=== PATIENT | female | born 1955 | race Caucasian/White ===

== ENCOUNTER 2016-09-04 12:49 | Emergency (ER) | payer BC ==
[2016-09-04 12:59] VITALS: TEMP 98.1; BMI 37.4
[2016-09-04] MEDS ORDERED: ASPIRIN 81 MG CHEWABLE TABLETS PO ONE (13:12)
[2016-09-04] MEDS ORDERED: ASPIRIN 81 MG CHEWABLE TABLETS ONE (13:22)
[2016-09-04 13:28] LABS: BASOPHIL 0.4 % (0-2.0); EOSINOPHIL 3.5 % (0-4.5); MCH 26.4 pg (25.7-33.7); MCHC 31.8 g/dl (32.0-36.0); MEAN CELL VOLUME 82.9 fl (80-96); MEAN PLT VOLUME 7.3 fl (7.5-11.1); NEUTROPHILS 69.8 % (42.8-82.8); PLATELET COUNT 314 K/MM3 (134-434); RDW 16.6 % (11.6-15.6); WHITE BLOOD COUNT 10.1 K/mm3 (4.0-10.0)
--- NOTE | 2016-09-04 13:29 | PDOC ---
History of Present Illness - General Chief Complaint: Pain Stated Complaint: NECK, SHOULDER, CHEST, BACK PAIN Time Seen by Provider: 09/04/16 12:54 History Source: Patient, Spouse Exam Limitations: No Limitations - History of Present Illness Initial Comments: 09/04/16 13:25 CHIEF COMPLAINT: "I have chest pain." HISTORY OF PRESENT ILLNESS: 60-year-old female with a history of carotid artery disease, hypertension, diabetes, hyperlipidemia, presents complaining of onset yesterday of discomfort across the entire anterior chest. The patient has a history of GERD and thought it might be GI so she stated home and rested. The symptoms persist today so she came to the emergency department. She denies shortness of breath, diaphoresis, vomiting, or radiation to the neck or shoulders. She does have chronic neck pain and back pain with a history of prior cervical surgery, but that is unchanged from baseline. The pain is continuously present, and is present at the current time. REVIEW OF SYSTEMS: GENERAL/CONSTITUTIONAL: No fever or chills. No weakness. No weight change. HEAD, EYES, EARS, NOSE AND THROAT: No change in vision. No ear pain or discharge. No sore throat. CARDIOVASCULAR: Positive chest pain. No shortness of breath. RESPIRATORY: No cough, wheezing, or hemoptysis. GASTROINTESTINAL: No nausea, vomiting, diarrhea or constipation. No rectal bleeding. GENITOURINARY: No dysuria, frequency, or change in urination. MUSCULOSKELETAL: No joint or muscle swelling or pain. Positive chronic neck pain and upper back pain, unchanged. History of cervical surgery. SKIN AND BREASTS: No rash or easy bruising. NEUROLOGIC: No headache, vertigo, loss of consciousness, or loss of sensation. PSYCHIATRIC: No depression or anxiety. ENDOCRINE: No increased thirst. No abnormal weight change. HEMATOLOGIC/LYMPHATIC: No anemia, easy bleeding, or history of blood clots. ALLERGIC/IMMUNOLOGIC: No hives or skin allergy. No latex allergy. Past History - Past Medical History Allergies/Adverse Reactions: Allergies Allergy/AdvReac Type Severity Reaction Status Date / Time No Known Drug Allergies Allergy Verified 09/04/16 12:51 Home Medications: Ambulatory Orders Aspirin Coated [Ecotrin -] 81 mg PO DAILY 07/22/12 Nadolol 40 mg PO HS 07/22/12 Olmesartan Medoxomil [Benicar -] 40 mg PO DAILY 07/22/12 Pravastatin Sodium [Pravachol -] 40 mg PO HS 07/22/12 Folic Acid/Multivit-Min/Lutein [Centrum Silver Chewable Tablet] 1 each PO DAILY 09/16/14 Glimepiride 1 mg PO BID 09/16/14 Ubidecarenone [Coq-10] 200 mg PO HS 09/16/14 Sitagliptin Phos/Metformin HCl [Janumet 50-1,000 mg Tablet] 1 tab PO BID Pantoprazole Sodium 40 mg PO DAILY 06/10/16 Cholecalciferol (Vitamin D3) [Vitamin D -] 2,000 unit PO DAILY 06/13/16 Ascorbate Calcium [Vitamin C] 500 mg PO DAILY 09/04/16 Iron Ps Cmplx/Vit B12/FA [Poly-Iron 150 Forte Capsule] 1 each PO DAILY 09/04/16 Ursodiol [Actigal] 300 mg PO BID 09/04/16 Anemia: Yes Asthma: No Cancer: Yes (SQUAMOUS OR BASAL CELL) Cardiac Disorders: Yes (CAD) CVA: No COPD: No CHF: No Dementia: No Diabetes: Yes (NIDDM) GI Disorders: Yes (DIVERTICULOSIS, GERD, GASTRITIS, H/O H-PYLORI, HH, COLON POLYP,HIATAL HERNI) Disorders: No HTN: Yes Hypercholesterolemia: Yes Liver Disease: Yes (STEATOSIS OF LIVER) Seizures: No - Surgical History Abdominal Surgery: No Cardiac Surgery: No Cholecystectomy: Yes Lung Surgery: No Neurologic Surgery: Yes (CERVICAL FUSION) Orthopedic Surgery: No - Psycho/Social/Smoking Cessation Hx Anxiety: No Suicidal Ideation: No Smoking Status: No Smoking History: Never smoked Have you smoked in the past 12 months: No Number of Cigarettes Smoked Daily: 0 Hx Alcohol Use: No Drug/Substance Use Hx: No Substance Use Type: None *Physical Exam - Vital Signs Last Vital Signs Temp Pulse Resp BP Pulse Ox 98.1 F 76 18 159/87 98 09/04/16 12:50 09/04/16 12:50 09/04/16 12:50 09/04/16 12:50 09/04/16 12:50 - Physical Exam Comments: 09/04/16 13:28 GENERAL: The patient is awake, alert, and fully oriented, in no acute distress. HEAD: Normal with no signs of trauma. EYES: Pupils equal, round and reactive to light, extraocular movements intact, sclera anicteric, conjunctiva clear. ENT: Ears normal, nares patent, oropharynx clear without exudates. Moist mucous membranes. NECK: Normal range of motion, positive for some discomfort on range of motion, supple without lymphadenopathy, JVD, or masses. LUNGS: Breath sounds equal, clear to auscultation bilaterally. No wheezes, and no crackles. HEART: Regular rate and rhythm, normal S1 and S2 without murmur, rub or gallop. ABDOMEN: Soft, very mild midepigastric tenderness to palpation, normoactive bowel sounds. No guarding, no rebound. No masses. EXTREMITIES: Normal range of motion, no edema. No clubbing or cyanosis. No cords, erythema, or tenderness. NEUROLOGICAL: Cranial nerves II through XII grossly intact. Normal speech, normal gait. PSYCH: Normal mood, normal affect. SKIN: Warm, Dry, normal turgor, no rashes or lesions noted. Heart Score/ECG Review - ECG Intrepretation Comment:: 09/04/16 13:29 Twelve-lead EKG shows normal sinus rhythm at a rate of 78 bpm. The axis is normal. The intervals are normal. There are no acute ST elevations or depressions. R-wave progression is normal. T waves are normal. Impression: Normal 12-lead EKG. 09/04/16 16:27 Repeat 12-lead EKG was performed at 1624. The rhythm is normal sinus rhythm at a rate of 75 bpm. The axis is normal. The intervals are normal. There are no ST elevations or depressions. There are no abnormal T waves. Impression: Normal 12-lead EKG. ED Treatment Course - LABORATORY CBC & Chemistry Diagram: 09/04/16 13:21 09/04/16 13:21 - RADIOLOGY Radiology Studies Ordered: Category Date Time Status CHEST PA & LAT [RAD] Stat Radiology 09/04/16 13:12 Ordered Medical Decision Making - Critical Care Time Total Critical Care Time (minutes): 40 (acute chest pain, initial considerations include acute myocardial infarction) Critical Care Statement: The care of this patient involved high complexity decision making to prevent further life threatening deterioration of the patient 's condition and/or to evalute & treat vital organ system(s) failure or risk of failure. - Medical Decision Making 09/04/16 13:30 1-year-old female with multiple cardiac risk factors and a history of prior carotid endarterectomy for carotid artery atherosclerotic disease. Patient presents with chest pain since yesterday. The pain is radiating across the left and right chest over the anterior chest. There are no associated symptoms of shortness of breath or diaphoresis and no nausea. Twelve-lead EKG shows no acute ST or T-wave changes. Laboratory workup ordered including cardiac enzymes. Impression: Chest pain of uncertain etiology. Workup currently in progress. 09/04/16 14:26 Patient's first EKG and enzymes are normal. Patient now reports she has frequent episodes of chest pain and has been evaluated by her physician on multiple occasions. She has had several stress tests that were all normal or her report. Patient advised that she will have repeat EKG and repeat cardiac enzymes at 3 hours to assure there is no change and no rise in her troponin level. She agrees with the plan. 09/04/16 17:34 Serial troponins 2 remain undetectable. CK 2 remains normal and is going down. EKG 2 is normal. Patient has had nonspecific neck shoulder and chest pain since yesterday, somewhat constantly. It does not appear that this pain is cardiac in etiology. Patient advised to rest, take Tylenol, and to follow- up with her primary care physician next week. She was further advised to return to the emergency department for any severe or progressive symptoms. *DC/Admit/Observation/Transfer Diagnosis at time of Disposition: Chest pain Qualifiers: Chest pain type: unspecified Qualified Code(s): R07.9 - Chest pain, unspecified - Discharge Dispostion Disposition: HOME Condition at time of disposition: Stable Admit: No - Referrals Referrals: Carmelo Melgar MD [Primary Care Provider] - 24 hours - Patient Instructions Printed Discharge Instructions: DI for Chest Pain Additional Instructions: You were evaluated today for chest pain. The EKGs and the heart enzyme tests were all normal. The exact cause of the chest pain is not clear, but no serious cause was found. Follow-up with Dr. Melgar this week. Return to the emergency department for any severe or progressive symptoms.
[2016-09-04 13:38] LABS: INR 1.12 (0.82-1.09); PROTHROMBIN TIME (PATIENT) 12.5 SEC (10.2-13.0)
[2016-09-04 13:43] LABS: ALBUMIN 3.7 g/dl (3.5-5.0); BILIRUBIN,TOTAL 0.4 mg/dl (0.2-1.0); TOT PROT 6.7 g/dl (6.4-8.3)
[2016-09-04 14:04] LABS: TROPONIN I (DFP) < 0.03 ng/ml (0.03-0.50)
[2016-09-04 14:11] LABS: CPK(DFH) 52 IU/L (26-140)
[2016-09-04 16:51] LABS: CPK(DFH) 48 IU/L (26-140)
[2016-09-04 17:06] LABS: TROPONIN I (DFP) < 0.03 ng/ml (0.03-0.50)
[2016-09-04 17:44] VITALS: BP 142/71; PULSE 78
--- NOTE | 2016-09-04 22:18 | EKG ---
Test Reason : Blood Pressure : / mmHG Vent. Rate : 078 BPM Atrial Rate : 078 BPM P-R Int : 192 ms QRS Dur : 072 ms QT Int : 380 ms P-R-T Axes : 027 032 072 degrees QTc Int : 433 ms NORMAL SINUS RHYTHM NORMAL ECG WHEN COMPARED WITH ECG OF 28-APR-2008 19:05, NO SIGNIFICANT CHANGE WAS FOUND Confirmed by NATHANIEL LOBATO MD ([id number]) on 09/04/2016 10:17:46 PM Referred By: SHARLA ROSALES Confirmed By:NATHANIEL LOBATO MD
--- NOTE | 2016-09-05 17:35 | EKG ---
Test Reason : Blood Pressure : / mmHG Vent. Rate : 075 BPM Atrial Rate : 075 BPM P-R Int : 176 ms QRS Dur : 072 ms QT Int : 390 ms P-R-T Axes : 045 032 043 degrees QTc Int : 435 ms NORMAL SINUS RHYTHM WHEN COMPARED WITH ECG OF 04-SEP-2016 13:25, NO SIGNIFICANT CHANGE WAS FOUND Confirmed by MD MANCINI MARJORY ([id number]) on 09/05/2016 5:35:27 PM Referred By: SHARLA ROSALES Confirmed By:MARLO MANCINI MD
== END 2016-09-04 17:45 | disposition home or self-care (01) ==
LOC: FER 12:49
DX: R07.9 Chest pain, unspecified (principal); K21.9 Gastro-esophageal reflux disease without esophagitis; E11.9 Type 2 diabetes mellitus without complications; I25.10 Atherosclerotic heart disease of native coronary artery without angina pectoris; Z79.84 Long term (current) use of oral hypoglycemic drugs; Z85.828 Personal history of other malignant neoplasm of skin; Z79.82 Long term (current) use of aspirin; K76.0 Fatty (change of) liver, not elsewhere classified; I10 Essential (primary) hypertension; K57.90 Diverticulosis of intestine, part unspecified, without perforation or abscess without bleeding
CPT/HCPCS: 36415; 71020-TC; 80053; 82550; 83735; 84484; 85025; 85610; 93005; 99285-25

== ENCOUNTER 2016-12-06 17:01 | Emergency (ER) | payer BC ==
[2016-12-06 17:06] VITALS: TEMP 98.8; BMI 38.3
--- NOTE | 2016-12-06 17:08 | PDOC ---
History of Present Illness - General History Source: Patient Exam Limitations: No Limitations - History of Present Illness Initial Comments: 12/06/16 17:13 The patient is a 60 year old female, with a significant past medical history of CAD, HTN, HLD, DM, who presents to the emergency department with right sided back pain for about 2 day. The patient reports having constant back pain for 2 days that often radiates into her right flank.abdomen area. She reports her back pain is often made worse with deep inhales. She notes having this pain before, but never with this intensity. She denies recent fevers, chills, headache or dizziness. She denies recent nausea, vomit, diarrhea or constipation. She denies recent dysuria, frequency, urgency or hematuria. She denies recent chest pain or shortness of breath. Allergies: NKDA Past surgical history: Gallbladder removal, , Cervical fusion. Social history: Nonsmoker. Denies EtOH use and recreational drug use. <Sundeep Henao - Last Filed: 12/06/16 17:15> <Juan Pennington - Last Filed: 12/06/16 19:08> - General Chief Complaint: Pain, Acute Stated Complaint: RIGHT FLANK PAIN Time Seen by Provider: 12/06/16 17:07 Past History <Sundeep Henao - Last Filed: 12/06/16 17:15> - Past Medical History Anemia: Yes Asthma: No Cancer: Yes (SQUAMOUS OR BASAL CELL) Cardiac Disorders: Yes (CAD) CVA: No COPD: No CHF: No Dementia: No Diabetes: Yes (NIDDM) GI Disorders: Yes (DIVERTICULOSIS, GERD, GASTRITIS, H/O H-PYLORI, HH, COLON POLYP,HIATAL HERNI) Disorders: No HTN: Yes Hypercholesterolemia: Yes Liver Disease: Yes (STEATOSIS OF LIVER) Seizures: No - Surgical History Abdominal Surgery: No Cardiac Surgery: No Cholecystectomy: Yes Lung Surgery: No Neurologic Surgery: Yes (CERVICAL FUSION) Orthopedic Surgery: No - Psycho/Social/Smoking Cessation Hx Anxiety: No Suicidal Ideation: No Smoking Status: No Smoking History: Never smoked Have you smoked in the past 12 months: No Number of Cigarettes Smoked Daily: 0 Information on smoking cessation initiated: No Hx Alcohol Use: No Drug/Substance Use Hx: No Substance Use Type: None <Juan Pennington - Last Filed: 12/06/16 19:08> - Past Medical History Allergies/Adverse Reactions: Allergies Allergy/AdvReac Type Severity Reaction Status Date / Time No Known Drug Allergies Allergy Verified 12/06/16 17:02 Home Medications: Ambulatory Orders Aspirin Coated [Ecotrin -] 81 mg PO DAILY 07/22/12 Nadolol 40 mg PO HS 07/22/12 Olmesartan Medoxomil [Benicar -] 40 mg PO DAILY 07/22/12 Pravastatin Sodium [Pravachol -] 40 mg PO HS 07/22/12 Folic Acid/Multivit-Min/Lutein [Centrum Silver Chewable Tablet] 1 each PO DAILY 09/16/14 Glimepiride 1 mg PO BID 09/16/14 Ubidecarenone [Coq-10] 200 mg PO HS 09/16/14 Sitagliptin Phos/Metformin HCl [Janumet 50-1,000 mg Tablet] 1 tab PO BID Pantoprazole Sodium 40 mg PO DAILY 06/10/16 Cholecalciferol (Vitamin D3) [Vitamin D -] 2,000 unit PO DAILY 06/13/16 Ascorbate Calcium [Vitamin C] 500 mg PO DAILY 09/04/16 Iron Ps Cmplx/Vit B12/FA [Poly-Iron 150 Forte Capsule] 1 each PO DAILY 09/04/16 Ursodiol [Actigal] 300 mg PO BID 09/04/16 Diltiazem HCl [Cartia Xt] 240 mg PO ASDIR 12/06/16 Review of Systems - Review of Systems Able to Perform ROS?: Yes Comments:: 12/06/16 17:13 CONSTITUTIONAL: Absent: Fever, Chills, Diaphoresis, Generalized Weakness, Malaise, Loss of Appetite HEENT: Absent: Rhinorrhea, Nasal Congestion, Throat Pain, Throat Swelling, Difficulty Swallowing, Mouth Swelling, Ear Pain, Eye Pain, Visual Changes CARDIOVASCULAR: Absent: Chest Pain, Syncope, Palpitations, Irregular Heart Rate, Lightheadedness , Peripheral Edema RESPIRATORY: Absent: Cough, Shortness of Breath, SOB with Exertion, Orthopnea, Wheezing, Stridor, Hemoptysis GASTROINTESTINAL: Absent: Abdominal pain, Abdominal Distension, Nausea, Vomiting, Diarrhea, Constipation, Melena, Hematochezia GENITOURINARY: Absent: Dysuria, Frequency, Urgency, Hesitancy, Flank Pain, Genital Pain MUSCULOSKELETAL: +back pain. Absent: Myalgia, Arthralgia, Joint Swelling, Neck Pain SKIN: Absent: Rash, Itching, PalloR HEMEATOLOGIC/IMMUNOLOGIC: Absent: Easy Bleeding, Easy Bruising, Lymphadenopathy, Frequent infections ENDOCRINE: Absent: Unexplained Weight Gain, Unexplained Weight Loss, Heat Intolerance, Cold Intolerance NEUROLOGIC: Absent: Headache, Focal Weakness, Paresthesias, Vertigo, Lightheadedness, Unsteady Gait, Seizure, Mental Status Changes, Incontinence PSYCHIATRIC: Absent: Anxiety, Depression <Sundeep Henao - Last Filed: 12/06/16 17:15> *Physical Exam - Vital Signs Last Vital Signs Temp Pulse Resp BP Pulse Ox 98.8 F 82 18 179/83 98 12/06/16 17:02 12/06/16 17:02 12/06/16 17:02 12/06/16 17:02 12/06/16 17:02 - Physical Exam Comments: 12/06/16 17:15 GENERAL: The patient is awake, alert, and fully oriented, in no acute distress. HEAD: Normal with no signs of trauma. EYES: Pupils equal, round and reactive to light, extraocular movements intact, sclera anicteric, conjunctiva clear. ENT: Ears normal, nares patent, oropharynx clear without exudates. Moist mucous membranes. NECK: Normal range of motion, supple without lymphadenopathy, JVD, or masses. LUNGS: Breath sounds equal, clear to auscultation bilaterally. No wheezes, and no crackles. HEART: Regular rate and rhythm, normal S1 and S2 without murmur, rub or gallop. ABDOMEN: Soft, nontender, normoactive bowel sounds. No guarding, no rebound. No masses. Negative [place]. EXTREMITIES: Normal range of motion, no edema. No clubbing or cyanosis. No cords , erythema, or tenderness. NEUROLOGICAL: Cranial nerves II through XII grossly intact. Normal speech, normal gait. PSYCH: Normal mood, normal affect. SKIN: Warm, Dry, normal turgor, no rashes or lesions noted. <Sundeep Henao - Last Filed: 12/06/16 17:15> - Vital Signs Last Vital Signs Temp Pulse Resp BP Pulse Ox 98.8 F 82 18 179/83 98 12/06/16 17:02 12/06/16 17:02 12/06/16 17:02 12/06/16 17:02 12/06/16 17:02 <Juan Pennington S - Last Filed: 12/06/16 19:08> Heart Score/ECG Review - ECG Intrepretation Comment:: 12/06/16 19:07 Twelve-lead EKG shows normal sinus rhythm at a rate of 82 bpm. The axis is normal. The intervals are normal. There are no ST elevations or depressions. Impression: Normal 12-lead EKG. <Juan Pennington S - Last Filed: 12/06/16 19:08> ED Treatment Course - LABORATORY CBC & Chemistry Diagram: 12/06/16 17:58 12/06/16 17:25 <Juan Pennington - Last Filed: 12/06/16 19:08> Medical Decision Making - Medical Decision Making 12/06/16 18:46 Patient is a 60-year-old woman with past medical history as noted. She presents complaining of 2-3 days of right mid back pain radiating around the right side along the lower costal margin to the right anterior upper abdomen/ chest. The pain is somewhat bandlike on the right side. She has had this type of pain intermittently in the past. Today she is noticing it more significantly so she came to the ED. She states the pain clearly gets worse when she takes a deep breath. There is no shortness of breath. There is no cough. There is no nausea, vomiting, or abdominal pain. On examination, the vital signs are notable for mild hypertension. The lungs are clear. The heart is regular rhythm without gallop or murmur. The abdomen is soft and nontender. There is no sign. At this time, the laboratory studies and EKG are pending. CXR is normal. Impression: Right-sided lower chest/upper abdominal pain that is affected by movement and breathing. Pain seems primarily muscular in nature. The pain is highly atypical for coronary disease. Given the nature of the pain coming and going intermittently in the same area, thromboembolic disease is also not a concern based on the history and exam. Chest x-ray PA and lateral shows no signs of abnormality. EKG is pending. Laboratory studies are pending. Patient endorsed to Dr. Teague at change of shift. 12/06/16 18:52 The scribe's documentation has been prepared under my direction and personally reviewed by me in its entirety. I have confirmed that the note above accurately reflects all work, treatment, procedures, and medical decision- making performed by me. 12/06/16 19:07 Lead EKG is normal. If the laboratory workup is negative, patient can be discharged on analgesics for musculoskeletal pain. Patient endorsed to Dr. Teague at change of shift. <Juan Pennington - Last Filed: 12/06/16 19:08> *DC/Admit/Observation/Transfer - Attestations Scribe Attestion: 12/06/16 17:14 Documentation prepared by Sundeep Henao, acting as medical coordinator pesticide use for Juan Pennington MD. <Sundeep Henao - Last Filed: 12/06/16 17:15> <Juan Pennington - Last Filed: 12/06/16 19:08> Diagnosis at time of Disposition: Right flank pain - Discharge Dispostion Condition at time of disposition: Stable
[2016-12-06 17:45] LABS: URINE APPEARANCE Clear; URINE BILIRUBIN Negative (NEGATIVE); URINE BLOOD Negative (NEGATIVE); URINE GLUCOSE (UA) Negative (NEGATIVE); URINE KETONE Negative (NEGATIVE); URINE LEUK ESTERASE Trace (NEGATIVE); URINE NITRITE Negative (NEGATIVE); URINE PROTEIN Negative (NEGATIVE); URINE UROBILINOGEN 0.2 E.U/dl (0.2-1.0)
[2016-12-06 18:06] LABS: URINE COLOR YELLOW
[2016-12-06 18:53] VITALS: BP 158/81; PULSE 83
[2016-12-06 20:17] LABS: ALBUMIN 3.8 g/dl (3.5-5.0); ALK PHOS 101 U/L (32-92); ANION GAP 9 (8-16); BILIRUBIN,TOTAL 0.4 mg/dl (0.2-1.0); CALCIUM 9.3 mg/dl (8.4-10.2); CO2 26 mmol/L (22-28); COCKROFT - GAULT NT; CREATININE 0.9 mg/dl (0.6-1.3); GLUCOSE,RANDOM 73 mg/dl (74-106); SGOT/AST 27 U/L (10-42); SGPT/ALT 33 U/L (10-40); TOT PROT 7.1 g/dl (6.4-8.3)
[2016-12-06] MEDS ORDERED: HEMOQUE CONTROL SOLUTION ONE (20:48)
--- NOTE | 2016-12-06 20:56 | PDOC ---
*Physical Exam - Vital Signs Last Vital Signs Temp Pulse Resp BP Pulse Ox 98.8 F 83 18 158/81 97 12/06/16 17:02 12/06/16 18:52 12/06/16 18:52 12/06/16 18:52 12/06/16 18:52 ED Treatment Course - LABORATORY CBC & Chemistry Diagram: 12/06/16 17:58 12/06/16 17:25 - ADDITIONAL ORDERS Additional order review: Laboratory Results 12/06/16 12/06/16 17:25 17:17 Sodium 134 L Potassium 4.7 Chloride 99 Carbon Dioxide 26 Anion Gap 9 BUN 20 H Creatinine 0.9 Creat Clearance w eGFR > 60 Random Glucose 73 L D Calcium 9.3 Total Bilirubin 0.4 AST 27 ALT 33 Alkaline Phosphatase 101 H Total Protein 7.1 Albumin 3.8 Urine Color Yellow Urine Appearance Clear Urine pH 7.0 Ur Specific Fortine 1.010 Urine Protein Negative Urine Glucose (UA) Negative Urine Ketones Negative Urine Blood Negative Urine Nitrite Negative Urine Bilirubin Negative Urine Urobilinogen 0.2 e.u/dl Ur Leukocyte Esterase Trace Medical Decision Making - Medical Decision Making 12/06/16 21:10 Patient was endorsed to me by Dr. Pennington, awaiting lab results. There have been delays in lab due to equipment problems, the CE is still pending. She is stating she wants to go home, does not wish to wait for results. I have taken down her phone number and will call with results. 12/06/16 21:28 CE are wnl. Left vm for patient on her cell [phone] as per her request. *DC/Admit/Observation/Transfer Diagnosis at time of Disposition: Right flank pain - Discharge Dispostion Disposition: HOME Condition at time of disposition: Stable Admit: No - Patient Instructions Printed Discharge Instructions: DI for Flank Pain
[2016-12-06 20:58] LABS: BASOPHIL 0.3 % (0-2.0); EOSINOPHIL 3.2 % (0-4.5); MCH 26.7 pg (25.7-33.7); MCHC 31.4 g/dl (32.0-36.0); MEAN PLT VOLUME 7.5 fl (7.5-11.1); NEUTROPHILS 64.4 % (42.8-82.8); PLATELET COUNT 327 K/MM3 (134-434); RDW 15.3 % (11.6-15.6); WHITE BLOOD COUNT 12.4 K/mm3 (4.0-10.0)
[2016-12-06 21:09] LABS: CPK(DFH) 105 IU/L (26-140)
[2016-12-06 21:21] LABS: TROPONIN I (DFP) < 0.03 ng/ml (0.03-0.50)
--- NOTE | 2016-12-07 14:29 | EKG ---
Test Reason : Blood Pressure : / mmHG Vent. Rate : 082 BPM Atrial Rate : 082 BPM P-R Int : 182 ms QRS Dur : 072 ms QT Int : 394 ms P-R-T Axes : 049 037 054 degrees QTc Int : 460 ms NORMAL SINUS RHYTHM NORMAL ECG WHEN COMPARED WITH ECG OF 04-SEP-2016 16:24, NO SIGNIFICANT CHANGE WAS FOUND Confirmed by RUTH CALZADA MD ([id number]) on 12/07/2016 2:29:32 PM Referred By: DR ROSALES Confirmed By:RUTH CALZADA MD
== END 2016-12-06 21:15 | disposition home or self-care (01) ==
LOC: FER 17:01
DX: R10.31 Right lower quadrant pain (principal); I25.10 Atherosclerotic heart disease of native coronary artery without angina pectoris; I10 Essential (primary) hypertension; E78.5 Hyperlipidemia, unspecified; E11.9 Type 2 diabetes mellitus without complications; Z85.828 Personal history of other malignant neoplasm of skin; K76.0 Fatty (change of) liver, not elsewhere classified
CPT/HCPCS: 36415; 71020-TC; 80053; 81003; 82550; 84484; 85025; 93005; 99283-25

== ENCOUNTER 2017-03-04 16:21 | Emergency (ER) | payer BC ==
--- NOTE | 2017-03-04 16:32 | PDOC ---
History of Present Illness - General Chief Complaint: Blood Pressure Problem Stated Complaint: elevated blood pressure Time Seen by Provider: 03/04/17 16:23 History Source: Patient - History of Present Illness Initial Comments: 03/04/17 16:33 Patient is a 61 y.o. female with PMH of HTN and NIIDM who presents to our facility today c/o elevated BP. Patient notes she had a headache (consistent with her prior headaches with hypertensive episodes) this afternoon around 2 p.m. and checked her blood pressure and noted it was 190's/90's. Patient states her headache is throbbing, localized to her frontal and parietal lobes and c/o associated photophobia as well as blurry vision. Patient stated she took her usual evening HTN medication (Nadolol 40 mg) at 3 p.m. however her pressure remained elevated. Patient notes she took her normal a.m. HTN medications today as well: Dilitiazem (240 mg QD) and Benicar (40 mg QD). On ROS patient c/o viral URI symptoms including sore throat and sinus congestion likely from her granddaughter as well as a high salt meal last night (perkins). Patient denies any shortness of breath or chest pain. Past Surgical: Carotid Endarterectomy, Cervical Fusion Social: (-) nicotine, (-) alcohol, (-) marijuana/cocaine/heroin PMD: Dr. Talia HAMMONDS Past History - Past Medical History Allergies/Adverse Reactions: Allergies Allergy/AdvReac Type Severity Reaction Status Date / Time No Known Drug Allergies Allergy Verified 03/04/17 16:23 Home Medications: Ambulatory Orders Aspirin Coated [Ecotrin -] 81 mg PO DAILY 07/22/12 Nadolol 40 mg PO HS 07/22/12 Olmesartan Medoxomil [Benicar -] 40 mg PO DAILY 07/22/12 Pravastatin Sodium [Pravachol -] 40 mg PO HS 07/22/12 Glimepiride 1 mg PO BID 09/16/14 Ubidecarenone [Coq-10] 200 mg PO HS 09/16/14 Sitagliptin Phos/Metformin HCl [Janumet 50-1,000 mg Tablet] 1 tab PO BID Pantoprazole Sodium 40 mg PO DAILY 06/10/16 Ascorbate Calcium [Vitamin C] 500 mg PO DAILY 09/04/16 Iron Ps Cmplx/Vit B12/FA [Poly-Iron 150 Forte Capsule] 1 each PO DAILY 09/04/16 Diltiazem HCl [Cartia Xt] 240 mg PO ASDIR 12/06/16 Ibuprofen [Motrin -] 600 mg PO TID #6 tablet 03/04/17 Anemia: Yes Asthma: No Cancer: Yes (SQUAMOUS OR BASAL CELL) Cardiac Disorders: Yes (CAD) CVA: No COPD: No CHF: No Dementia: No Diabetes: Yes (NIDDM) GI Disorders: Yes (DIVERTICULOSIS, GERD, GASTRITIS, H/O H-PYLORI, HH, COLON POLYP,HIATAL HERNI) Disorders: No HTN: Yes Hypercholesterolemia: Yes Liver Disease: Yes (STEATOSIS OF LIVER) Seizures: No - Surgical History Abdominal Surgery: No Cardiac Surgery: No Cholecystectomy: Yes Lung Surgery: No Neurologic Surgery: Yes (CERVICAL FUSION) Orthopedic Surgery: No - Psycho/Social/Smoking Cessation Hx Anxiety: No Suicidal Ideation: No Smoking Status: No Smoking History: Never smoked Have you smoked in the past 12 months: No Number of Cigarettes Smoked Daily: 0 Hx Alcohol Use: No Drug/Substance Use Hx: No Substance Use Type: None Review of Systems - Review of Systems Constitutional: No: Chills, Fever HEENTM: Yes: Blurred Vision, Throat Pain, Other (Sinus pressure). No: Double Vision Respiratory: Yes: Wheezing. No: Cough, Orthopnea, Shortness of Breath, Stridor Cardiac (ROS): No: Chest Pain, Edema, Lightheadedness, Palpitations ABD/GI: No: Nausea, Vomiting : No: Burning, Dysuria Neurological: Yes: Headache Psychiatric: Yes: Anxiety. No: Depression All Other Systems: Reviewed and Negative *Physical Exam - Physical Exam General Appearance: Yes: Nourished, Appropriately Dressed, Obese HEENT: positive: EOMI, ANIVAL, Other (No appreciable pharyngeal, tonisillar erythema or exudate) Neck: positive: Trachea midline, Supple Respiratory/Chest: positive: Normal Breath Sounds, Wheezing Cardiovascular: positive: Regular Rhythm, Regular Rate, S1, S2 Gastrointestinal/Abdominal: positive: Normal Bowel Sounds, Soft Extremity: positive: Normal Capillary Refill Integumentary: positive: Normal Color, Dry, Warm Neurologic: positive: flight hostess II-XII NML intact, Fully Oriented, Alert Medical Decision Making - Medical Decision Making 03/04/17 16:32 Patient is a 61 y.o. female who presents c/o of elevated BP. Immediate DDX includes Hypertensive Urgency vs. SAH (less likely). As patient has c/o viral URI as well as recent salt load diet, management consisted of supportive care including Motrin (500 mg) for headache. Patient's headache improved during course of admission and blood pressure decreased significantly to 164/87. Patient was discharged home with instruction to return to the ED should she experience increasing severity of headache, chest pain, or shortness of breath. *DC/Admit/Observation/Transfer Diagnosis at time of Disposition: Headache due to viral infection - Discharge Dispostion Disposition: HOME Condition at time of disposition: Stable Admit: No - Prescriptions Prescriptions: Ibuprofen [Motrin -] 600 mg PO TID #6 tablet - Referrals Referrals: Carmelo Melgar MD [Primary Care Provider] - - Patient Instructions Printed Discharge Instructions: DI for High Blood Pressure, How to Monitor Your Blood Pressure at Home Additional Instructions: You were evaluated and treated in the Emergency Department today for elevated blood pressure and headache. Should you experience worsening of your headache, chest pain, shortness of breath, or severe discomfort please return to the Emergency Department
[2017-03-04 16:34] VITALS: TEMP 97.8; BMI 39.1
[2017-03-04] MEDS ORDERED: IBUPROFEN 600 MG TABLET (FP) PO ONE ×2 (16:49→16:51)
--- NOTE | 2017-03-04 16:58 | PDOC ---
Attending Attestation - Resident Resident Name: Alley Copeland - ED Attending Attestation I have performed the following: I have examined & evaluated the patient, The case was reviewed & discussed with the resident, I agree w/resident's findings & plan, Exceptions are as noted - HPI HPI: 03/04/17 16:55 61-year-old female with history of coronary disease, hypertension, diabetes, hyperlipidemia presents immersed hard for elevated blood pressures. The patient reports that she recently had a sick contact with a grandchild with upper respiratory infection symptoms. She says, he started developing facial sinus- like headaches, rhinorrhea, dry cough and viral-like syndrome. She started noticing today that she's also been having a tension-like headache in the frontal face. She subsequently went to check her blood pressure was noted to be elevated to 190s systolic. She states that the headache has worsened around 2: 00 pm and was a severe frontal headache but denies thunderclap headache or loss of consciousness. States that the headache gradually worsened. She had taken 2 tablets of Excedrin which improved headache and her symptoms but headache is still residual. She was concerned because her blood pressures elevated despite taking her blood pressure medications. Denies fevers or chills. Denies chest pain or shortness of breath. - Physicial Exam PE: 03/04/17 16:57 GENERAL: Awake, alert, and fully oriented, in no acute distress. HEAD: No signs of trauma EYES: PERRLA, EOMI, sclera anicteric, conjunctiva clear ENT: Auricles normal inspection, hearing grossly normal, nares patent, oropharynx clear without exudates. TMs clear bilaterally. NECK: Normal ROM, supple, no lymphadenopathy, JVD, or masses LUNGS: Breath sounds equal, clear to auscultation bilaterally. No wheezes, and no crackles HEART: Regular rate and rhythm, normal S1 and S2, no murmurs, rubs or gallops ABDOMEN: Soft, nontender, normoactive bowel sounds. No guarding, no rebound. No masses EXTREMITIES: Normal range of motion, no edema. No clubbing or cyanosis. No cords, erythema, or tenderness NEUROLOGICAL: Cranial nerves II through XII grossly intact. Normal speech, normal gait SKIN: Warm, Dry, normal turgor, no rashes or lesions noted. - Medical Decision Making 09/02/17 16:57 Vital Signs Temp Pulse Resp BP Pulse Ox 97.8 F 84 18 187/99 97 03/04/17 16:23 03/04/17 16:23 03/04/17 16:23 03/04/17 16:23 03/04/17 16:23 I suspect that the patient's constellation of symptoms is consistent with viral syndrome. Patient will need supportive care. I suspect that her elevated blood pressure his reflective secondary to her illness. I advised the patient that if she develops any uncontrollable headaches, chest pain or shortness of breath to return to the ED. Patient's family is at the bedside who agrees with plan. She' ll follow up with her primary care physician.
[2017-03-04 17:33] VITALS: BP 164/87; PULSE 81
== END 2017-03-04 17:43 | disposition home or self-care (01) ==
LOC: SUPCPDRO 16:21 → FER 16:21
DX: B34.9 Viral infection, unspecified (principal); R51 Headache; I10 Essential (primary) hypertension; E11.9 Type 2 diabetes mellitus without complications; D64.9 Anemia, unspecified
CPT/HCPCS: 99281-25

== ENCOUNTER 2018-01-27 17:14 | Emergency (ER) | payer BC ==
[2018-01-27 17:25] VITALS: BP 139/77; PULSE 88; BMI 36.8
--- NOTE | 2018-01-27 19:09 | PDOC ---
History of Present Illness - General Chief Complaint: SIRS, Suspected/Possible Stated Complaint: FEVER Time Seen by Provider: 01/27/18 19:08 Past History - Past Medical History Allergies/Adverse Reactions: Allergies Allergy/AdvReac Type Severity Reaction Status Date / Time No Known Drug Allergies Allergy Verified 01/27/18 17:25 Home Medications: Ambulatory Orders Aspirin Coated [Ecotrin -] 81 mg PO DAILY 07/22/12 Nadolol 40 mg PO HS 07/22/12 Olmesartan Medoxomil [Benicar -] 40 mg PO DAILY 07/22/12 Pravastatin Sodium [Pravachol -] 40 mg PO HS 07/22/12 Glimepiride 1 mg PO BID 09/16/14 Ubidecarenone [Coq-10] 200 mg PO HS 09/16/14 Sitagliptin Phos/Metformin HCl [Janumet 50-1,000 mg Tablet] 1 tab PO BID Pantoprazole Sodium 40 mg PO DAILY 06/10/16 Diltiazem HCl [Cartia Xt] 240 mg PO DAILY 12/06/16 Ibuprofen [Motrin -] 600 mg PO TID #6 tablet 03/04/17 Cholecalciferol (Vitamin D3) [Vitamin D3] 2,000 unit PO DAILY 01/14/18 Anemia: Yes Asthma: No Cancer: Yes (SQUAMOUS OR BASAL CELL) Cardiac Disorders: Yes (CAD) CVA: No COPD: No CHF: No Dementia: No Diabetes: Yes (NIDDM) GI Disorders: Yes (DIVERTICULOSIS, GERD, GASTRITIS, H/O H-PYLORI, HH, COLON POLYP,HIATAL HERNI) Disorders: No HTN: Yes Hypercholesterolemia: Yes Liver Disease: Yes (STEATOSIS OF LIVER) Seizures: No - Surgical History Abdominal Surgery: No Cardiac Surgery: No Cholecystectomy: Yes Lung Surgery: No Neurologic Surgery: Yes (CERVICAL FUSION) Orthopedic Surgery: No - Suicide/Smoking/Psychosocial Hx Smoking Status: No Smoking History: Never smoked Have you smoked in the past 12 months: No Number of Cigarettes Smoked Daily: 0 Hx Alcohol Use: No Drug/Substance Use Hx: No Substance Use Type: None *Physical Exam - Vital Signs Last Vital Signs Temp Pulse Resp BP Pulse Ox 101.2 F H 88 18 139/77 99 01/27/18 17:22 01/27/18 17:22 01/27/18 17:22 01/27/18 17:22 01/27/18 17:22
--- NOTE | 2018-01-27 19:37 | PDOC ---
History of Present Illness <Blaire Murphy - Last Filed: 01/27/18 22:40> - History of Present Illness Initial Comments: 01/27/18 19:29 62 year old with history of HTN and NIDDM who presents with intermittent fevers ranging from 99F - 103F for the past 3 weeks as recorded by the TM membrane. The patient admits to some nausea during the fever but denies any abdominal pain , chest pain and headaches. 3 weeks ago the patient took a course of penicillin for a gum infection and during that time had an episode of gastroenteritis. The patient states that since then she has had intermittent fevers that are relieved with Motrin. This AM her fever was 102F and was recorded at 103.6F at 1500. She is followed by her PCP and has had bloodwork, CT abd and CT chest workup that was unremarkable. She was told to come to the ED by her PCP for blood culture. She has no other complaints at bedside. PMHX: as in HPI PSHX: none Meds: ASA, Janumet, Pantoprazole, Benicar Tob: none Etoh: none Rec drugs: none <Aria Barry - Last Filed: 01/27/18 22:53> - General Chief Complaint: SIRS, Suspected/Possible Stated Complaint: FEVER Time Seen by Provider: 01/27/18 19:08 Past History <Blaire Murphy - Last Filed: 01/27/18 22:40> - Past Medical History Anemia: Yes Asthma: No Cancer: Yes (SQUAMOUS OR BASAL CELL) Cardiac Disorders: Yes (CAD) CVA: No COPD: No CHF: No Dementia: No Diabetes: Yes (NIDDM) GI Disorders: Yes (DIVERTICULOSIS, GERD, GASTRITIS, H/O H-PYLORI, HH, COLON POLYP,HIATAL HERNI) Disorders: No HTN: Yes Hypercholesterolemia: Yes Liver Disease: Yes (STEATOSIS OF LIVER) Seizures: No - Surgical History Abdominal Surgery: No Cardiac Surgery: No Cholecystectomy: Yes Lung Surgery: No Neurologic Surgery: Yes (CERVICAL FUSION) Orthopedic Surgery: No - Suicide/Smoking/Psychosocial Hx Smoking Status: No Smoking History: Never smoked Have you smoked in the past 12 months: No Number of Cigarettes Smoked Daily: 0 Hx Alcohol Use: No Drug/Substance Use Hx: No Substance Use Type: None <Aria Barry - Last Filed: 01/27/18 22:53> - Past Medical History Allergies/Adverse Reactions: Allergies Allergy/AdvReac Type Severity Reaction Status Date / Time No Known Drug Allergies Allergy Verified 01/27/18 17:25 Home Medications: Ambulatory Orders Aspirin Coated [Ecotrin -] 81 mg PO DAILY 07/22/12 Nadolol 40 mg PO HS 07/22/12 Olmesartan Medoxomil [Benicar -] 40 mg PO DAILY 07/22/12 Pravastatin Sodium [Pravachol -] 40 mg PO HS 07/22/12 Glimepiride 1 mg PO BID 09/16/14 Ubidecarenone [Coq-10] 200 mg PO HS 09/16/14 Sitagliptin Phos/Metformin HCl [Janumet 50-1,000 mg Tablet] 1 tab PO BID Pantoprazole Sodium 40 mg PO DAILY 06/10/16 Diltiazem HCl [Cartia Xt] 240 mg PO DAILY 12/06/16 Ibuprofen [Motrin -] 600 mg PO TID #6 tablet 03/04/17 Cholecalciferol (Vitamin D3) [Vitamin D3] 2,000 unit PO DAILY 01/14/18 levoFLOXacin [Levaquin -] 500 mg PO DAILY #7 tablet 01/27/18 metroNIDAZOLE [Flagyl -] 500 mg PO TID #21 tablet 01/27/18 Review of Systems - Review of Systems Able to Perform ROS?: Yes Is the patient limited Estonian proficient: No Constitutional: Yes: Chills, Fever HEENTM: No: Tinnitus Respiratory: No: Cough, Orthopnea, Shortness of Breath Cardiac (ROS): No: Chest Pain, Palpitations, Chest Tightness ABD/GI: No: Constipated, Diarrhea, Nausea, Rectal Bleeding, Vomiting : No: Burning, Dysuria, Hematuria Musculoskeletal: No: Muscle Pain, Muscle Weakness Neurological: No: Headache, Numbness, Tingling <Aria Barry - Last Filed: 01/27/18 22:53> *Physical Exam - Vital Signs Last Vital Signs Temp Pulse Resp BP Pulse Ox 102.8 F H 88 18 139/77 99 01/27/18 20:46 01/27/18 17:22 01/27/18 17:22 01/27/18 17:22 01/27/18 17:22 <Blaire Murphy - Last Filed: 01/27/18 22:40> - Vital Signs Last Vital Signs Temp Pulse Resp BP Pulse Ox 101.2 F H 88 18 139/77 99 01/27/18 17:22 01/27/18 17:22 01/27/18 17:22 01/27/18 17:22 01/27/18 17:22 - Physical Exam Comments: 01/27/18 19:44 GENERAL: Awake, alert, and fully oriented, in no acute distress HEAD: No signs of trauma, normocephalic, atraumatic EYES: EOMI, sclera anicteric, conjunctiva clear ENT: oropharynx clear without exudates. Moist mucosa NECK: Normal ROM, supple, no lymphadenopathy or masses LUNGS: No distress, speaks full sentences, clear to auscultation bilaterally HEART: Regular rate and rhythm, normal S1 and S2, no murmurs, rubs or gallops, peripheral pulses normal and equal bilaterally. ABDOMEN: Soft, nontender, normoactive bowel sounds. No guarding, no rebound. No masses EXTREMITIES : Normal inspection, Normal range of motion, no edema. No clubbing or cyanosis. NEUROLOGICAL: Normal speech, normal gait, no focal sensorimotor deficits SKIN: Warm, Dry, normal turgor, no rashes or lesions noted <Aria Barry - Last Filed: 01/27/18 22:53> ED Treatment Course - LABORATORY CBC & Chemistry Diagram: 01/27/18 20:06 01/27/18 20:06 - ADDITIONAL ORDERS Additional order review: Laboratory Results 01/27/18 01/27/18 01/27/18 21:25 20:06 20:06 Sodium 135 L Potassium 4.4 Chloride 101 Carbon Dioxide 26 Anion Gap 8 BUN 18 Creatinine 1.2 H Creat Clearance w eGFR 45.23 Random Glucose 119 H Lactic Acid 0.7 Calcium 9.2 Total Bilirubin 0.4 AST 10 L ALT 16 Alkaline Phosphatase 104 Total Protein 6.8 Albumin 3.0 L Urine Color Yellow Urine Appearance Clear Urine pH 6.0 Ur Specific [place] 1.015 Urine Protein 1+ H Urine Glucose (UA) Negative Urine Ketones Negative Urine Blood Negative Urine Nitrite Negative Urine Bilirubin Negative Urine Urobilinogen Negative Ur Leukocyte Esterase Negative Urine WBC (Auto) 2 Urine RBC (Auto) <1 Ur Epithelial Cells Rare 01/27/18 20:06 RBC 3.73 MCV 81.6 MCHC 31.8 L RDW 14.9 MPV 6.7 L D Neutrophils % 75.7 Lymphocytes % 12.3 D Monocytes % 10.6 H Eosinophils % 1.2 Basophils % 0.2 - Medications Given in the ED: ED Medications Discontinued Medications Generic Name Dose Route Start Last Admin Trade Name Dmitriy PRN Reason Stop Dose Admin Levofloxacin 500 mg in 100 mls @ 100 mls/hr 01/27/18 20:29 01/27/18 21:57 Levaquin 500 Mg Premixed Ivpb - IVPB 01/27/18 21:28 100 mls/hr ONCE ONE Administration Protocol Metronidazole 500 mg in 100 mls @ 100 mls/hr 01/27/18 20:30 01/27/18 22:19 Flagyl 500mg Premixed Ivpb - IVPB 01/27/18 21:29 100 mls/hr ONCE ONE Administration <Blaire Murphy - Last Filed: 01/27/18 22:40> - LABORATORY CBC & Chemistry Diagram: 01/27/18 20:06 01/27/18 20:06 <Aria Barry - Last Filed: 01/27/18 22:53> Medical Decision Making - Medical Decision Making 01/27/18 19:46 62 year old with history of HTN and NIDDM who presents with intermittent fevers ranging from 99F - 103F for the past 3 weeks. The patient 01/27/18 19:47 <Aria Barry - Last Filed: 01/27/18 22:53> *DC/Admit/Observation/Transfer - Discharge Dispostion Decision to Admit order: No <Blaire Murphy - Last Filed: 01/27/18 22:40> <Aria Barry - Last Filed: 01/27/18 22:53> Diagnosis at time of Disposition: Mononucleosis - Discharge Dispostion Disposition: HOME Condition at time of disposition: Stable - Prescriptions Prescriptions: levoFLOXacin [Levaquin -] 500 mg PO DAILY #7 tablet metroNIDAZOLE [Flagyl -] 500 mg PO TID #21 tablet - Referrals Referrals: Carmelo Melgar MD [Primary Care Provider] - - Patient Instructions Printed Discharge Instructions: DI for Mononucleosis-Adult
--- NOTE | 2018-01-27 19:47 | PDOC ---
Attending Attestation - [facility] HPI: 01/27/18 21:37 The patient is a 62 year old female with a significant past medical history of hypertension and non-insulin dependent diabetes who presents to the emergency department for evaluation of fever. The patient reports a 3 week history of intermittent fevers with a TMax ranging from 99 to 103. 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 The patient reports associated nausea without vomiting at the onset of an episode of fever. She has followed up with her PCP for extensive workup including CT scan of abdomen, chest, pelvis (all normal) as well as blood work done 2 days ago with notable WBC of 12. The patient states her PMD ordered Lyme titer or and EBV blood test and still awaiting the results. Pt reports being treated with a course of penicillin secondary to dental pain. She notes during the treatment period, she ate bad gu[place] food and developed subsequent nausea, vomiting, diarrhea, and bloating. The patient notes after finishing the antibiotics, her bloating never subsided. Of note, the patient visits her children who have ticks in the backyard; however, she does not have a target rash on her body. Pt reports her PCP prompted her to visit the ED to obtain blood cultures for further evaluation and possible admission. She reports taking motrin with relief to her symptoms and has been alternating with tylenol as per her PCP. At presentation, pt is febrile and has a decreased appetite. Pt refuses to stay in the hospital. The patient was never treated for an intestinal infection. Today, a peripheral blood smear will be sent. Of note, the patient reports several mosquito bites which can be westnile virus or Zika. The patient denies chest pain, shortness of breath, headache, and dizziness. Denies chills, nausea, and any bowel/urinary symptoms. Allergies: NKDA Social History: No reported alcohol, cigarette, or drug use. Surgical History: Cervical fusion. Cholecystectomy. PCP: Dr. Carmelo Melgar ([phone]) - Physicial Exam PE: GENERAL: Awake, alert, and fully oriented, in no acute distress HEAD: No signs of trauma EYES: PERRLA, EOMI, sclera anicteric, conjunctiva clear ENT: Auricles normal inspection, hearing grossly normal, nares patent, oropharynx clear without exudates. Moist mucosa NECK: Normal ROM, supple, no lymphadenopathy, JVD, or masses LUNGS: Breath sounds equal, clear to auscultation bilaterally. No wheezes, and no crackles HEART: Regular rate and rhythm, normal S1 and S2, no murmurs, rubs or gallops ABDOMEN: Soft, nontender, normoactive bowel sounds. No guarding, no rebound. No masses EXTREMITIES: Normal range of motion, no edema. No clubbing or cyanosis. No cords, erythema, or tenderness NEUROLOGICAL: Cranial nerves II through XII grossly intact. Normal speech, normal gait SKIN: Warm, Dry, normal turgor, no rashes or lesions noted. <Anastacia Johns - Last Filed: 01/27/18 21:37> - Resident Resident Name: Aria Barry - ED Attending Attestation I have performed the following: I have examined & evaluated the patient, The case was reviewed & discussed with the resident, I agree w/resident's findings & plan - Medical Decision Making 01/28/18 19:28 Pt has elevated IgG levels for EBV. She has mononucleosis; as such she will be admised to rest and take antipyretics. D/C home and PMD follow up, Return for worsening symptoms. <Blaire Murphy - Last Filed: 01/28/18 19:29> Attestations - Attestations Documentation prepared by Anastacia Johns, acting as medical records assistant for Blaire Murphy MD. <Anastacia Johns - Last Filed: 01/27/18 21:37>
[2018-01-27] MEDS ORDERED: ACETAMINOPHEN 500 MG TABLET (FP) PO ONE (20:10)
[2018-01-27 20:23] LABS: BASO % 0.2 % (0-2.0); EOS % 1.2 % (0-4.5); HEMATOCRIT 30.5 % (32.4-45.2); HEMOGLOBIN 9.7 GM/dL (10.7-15.3); LYMPH % 12.3 % (8-40); MCH 25.9 pg (25.7-33.7); MCHC 31.8 g/dl (32.0-36.0); MEAN CELL VOLUME 81.6 fl (80-96); MEAN PLT VOLUME 6.7 fl (7.5-11.1); MONO % 10.6 % (3.8-10.2); NEUT % 75.7 % (42.8-82.8); PLATELET COUNT 387 K/MM3 (134-434); RBC 3.73 M/mm3 (3.60-5.2); RDW 14.9 % (11.6-15.6); WHITE BLOOD COUNT 11.3 K/mm3 (4.0-10.0)
[2018-01-27 20:47] VITALS: TEMP 102.8
[2018-01-27 20:54] LABS: ALK PHOS 104 U/L (45-117); ANION GAP 8 (8-16); BILIRUBIN,TOTAL 0.4 mg/dL (0.2-1.0); BLOOD UREA NITROGEN 18 mg/dL (7-18); CALCIUM 9.2 mg/dL (8.5-10.1); CHLORIDE 101 mmol/L (98-107); CO2 26 mmol/L (21-32); CREATININE 1.2 mg/dL (0.55-1.02); GLUCOSE,RANDOM 119 mg/dL (74-106); POTASSIUM 4.4 mmol/L (3.5-5.1); SGOT/AST 10 U/L (15-37); SGPT/ALT 16 U/L (12-78); SODIUM 135 mmol/L (136-145); TOT PROT 6.8 g/dl (6.4-8.2)
[2018-01-27 21:37] LABS: URINE APPEARANCE CLEAR; URINE BILIRUBIN NEGATIVE (<2.0 mg/dL); URINE COLOR YELLOW; URINE GLUCOSE (UA) NEGATIVE (NEGATIVE); URINE KETONE NEGATIVE (NEGATIVE); URINE LEUK ESTERASE NEGATIVE (NEGATIVE); URINE NITRITE NEGATIVE (NEGATIVE); URINE UROBILINOGEN NEGATIVE mg/dL (0.2-1.0)
[2018-01-27 21:40] LABS: URINE PROTEIN 1+ (NEGATIVE)
[2018-01-27 21:41] LABS: EPI CELLS RARE /HPF (FEW)
[2018-01-27] MEDS ORDERED: IBUPROFEN 400 MG TABLET (FP) PO ONE ×2 (22:20→22:47)
[2018-01-28 00:01] LABS: INR 1.3 (0.82-1.09); PROTHROMBIN TIME (PATIENT) 14.7 SEC (9.7-13.0)
[2018-01-28 00:03] LABS: ACTIVATED PTT 27.8 SECONDS (25.2-36.5)
== END 2018-01-27 22:58 | disposition home or self-care (01) ==
LOC: JER 17:14
DX: B27.90 Infectious mononucleosis, unspecified without complication (principal); I10 Essential (primary) hypertension; E11.9 Type 2 diabetes mellitus without complications; Z79.84 Long term (current) use of oral hypoglycemic drugs; E78.00 Pure hypercholesterolemia, unspecified; Z87.19 Personal history of other diseases of the digestive system; Z98.1 Arthrodesis status
CPT/HCPCS: 36415; 71045-TC-FY; 80053; 81003; 81015; 82550; 83605; 84484; 85025; 85610; 85730; 87040; 87086; 99283-25

== ENCOUNTER 2018-06-04 07:24 | Emergency (ER) | payer BC ==
--- NOTE | 2018-06-04 07:29 | PDOC ---
History of Present Illness - General Chief Complaint: Headache Stated Complaint: head ache and elevated blood pressure Time Seen by Provider: 06/04/18 07:29 History Source: Patient Exam Limitations: No Limitations - History of Present Illness Initial Comments: 06/04/18 08:22 Pt presents to the ED complaining of frontal headache that awoke her from sleep at 5 am. States that the headache involved her "whole head", was constant and throbbing. Took her antihypertensives and advil with improvement in the pain. Now pain is mild-moderate in severity. Denies nausea, vomiting or photophobia. Denies prior history of similar headaches, although I note several ED visits for headache in her chart. Past History - Past Medical History Allergies/Adverse Reactions: Allergies Allergy/AdvReac Type Severity Reaction Status Date / Time No Known Drug Allergies Allergy Verified 06/04/18 07:26 Home Medications: Ambulatory Orders Aspirin Coated [Ecotrin -] 81 mg PO DAILY 07/22/12 Nadolol 40 mg PO HS 07/22/12 Olmesartan Medoxomil [Benicar -] 40 mg PO DAILY 07/22/12 Pravastatin Sodium [Pravachol -] 40 mg PO HS 07/22/12 Glimepiride 1 mg PO BID 09/16/14 Sitagliptin Phos/Metformin HCl [Janumet 50-1,000 mg Tablet] 1 tab PO BID Pantoprazole Sodium 40 mg PO DAILY 06/10/16 Diltiazem HCl [Cartia Xt] 240 mg PO DAILY 12/06/16 Cholecalciferol (Vitamin D3) [Vitamin D3] 2,000 unit PO DAILY 01/14/18 Anemia: Yes Asthma: No Cancer: Yes (SQUAMOUS OR BASAL CELL) Cardiac Disorders: Yes (CAD) CVA: No COPD: No CHF: No Dementia: No Diabetes: Yes (NIDDM) GI Disorders: Yes (DIVERTICULOSIS, GERD, GASTRITIS, H/O H-PYLORI, HH, COLON POLYP,HIATAL HERNI) Disorders: No HTN: Yes Hypercholesterolemia: Yes Liver Disease: Yes (STEATOSIS OF LIVER) Seizures: No - Surgical History Abdominal Surgery: No Cardiac Surgery: No Cholecystectomy: Yes Lung Surgery: No Neurologic Surgery: Yes (CERVICAL FUSION) Orthopedic Surgery: No - Suicide/Smoking/Psychosocial Hx Smoking Status: No Smoking History: Never smoked Have you smoked in the past 12 months: No Number of Cigarettes Smoked Daily: 0 Hx Alcohol Use: No Drug/Substance Use Hx: No Substance Use Type: None Review of Systems - Review of Systems Able to Perform ROS?: Yes Is the patient limited Urdu proficient: No Constitutional: No: Chills, Diaphoresis, Fever, Loss of Appetite, Malaise, Night Sweats, Weakness, Weight Stable, Unintentional Wgt. Loss, Unexplained wgt Loss, Other HEENTM: No: Eye Pain, Blurred Vision, Tearing, Recent change in vision, Double Vision, Cataracts, Ear Pain, Ocular Prothesis, Ear Discharge, Nose Pain, Nose Congestion, Tinnitus, Nose Bleeding, Hearing Loss, Throat Pain, Throat Swelling , Mouth Pain, Dental Problems, Difficulty Swallowing, Mouth Swelling, Other Respiratory: No: Cough, Orthopnea, Shortness of Breath, SOB with Exertion, SOB at Rest, Stridor, Wheezing, Productive cough, Hemoptysis, Other Cardiac (ROS): No: See HPI, Chest Pain, Edema, Irregular Heart Rate, Lightheadedness, Palpitations, Syncope, Chest Tightness, Other ABD/GI: No: Abdominal Distended, Abd. Pain w/ defecation, Blood Streaked Bowels , Constipated, Diarrhea, Difficulty Swallowing, Nausea, Poor Appetite, Poor Fluid Intake, Rectal Bleeding, Vomiting, Indigestion, Abdominal cramping, Tarry Stools, Other Neurological: Yes: Headache. No: Numbness, Paresthesia, Pre-Existing Deficit, Seizure, Tingling, Tremors, Weakness, Unsteady Gait, Ataxia, Dizziness, Other All Other Systems: Reviewed and Negative *Physical Exam - Physical Exam General Appearance: Yes: Nourished, Appropriately Dressed HEENT: positive: EOMI, Normal ENT Inspection, Normal Voice Neck: positive: Supple Respiratory/Chest: positive: Lungs Clear, Normal Breath Sounds Cardiovascular: positive: Regular Rhythm, Regular Rate, S1, S2 Gastrointestinal/Abdominal: positive: Flat, Soft. 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 Denies other complaints. Headache is now only mild in severity, but given that the patient reports sudden onset, severe pain, subarachnoid cannot be excluded based on history and physical exam. Will check CT head to evaluate for subarachnoid. Will discharge home if negative. 06/04/18 09:03 Ct is negative. Will discharge home. *DC/Admit/Observation/Transfer Diagnosis at time of Disposition: Headache Qualifiers: Headache type: unspecified Headache chronicity pattern: acute headache Intractability: not intractable Qualified Code(s): R51 - Headache - Discharge Dispostion Disposition: HOME Condition at time of disposition: Good Decision to Admit order: No - Referrals - Patient Instructions Printed Discharge Instructions: DI for Headache Additional Instructions: return to the ED for severe pain, pain with nausea and vomiting, pain with fever , weakness on one side of the body or face, other new or worsening symptoms. Make sure that you call your primary care doctor for follow up tomorrow. - Post Discharge Activity
[2018-06-04 07:30] VITALS: PULSE 87; TEMP 98.5; BMI 37.8
[2018-06-04 07:49] VITALS: BP 159/85
== END 2018-06-04 09:10 | disposition home or self-care (01) ==
LOC: FER 07:24
DX: R51 Headache (principal); I10 Essential (primary) hypertension; E78.00 Pure hypercholesterolemia, unspecified; K76.0 Fatty (change of) liver, not elsewhere classified; E11.9 Type 2 diabetes mellitus without complications; I25.10 Atherosclerotic heart disease of native coronary artery without angina pectoris
CPT/HCPCS: 70450-TC; 99281-25

== ENCOUNTER 2018-07-11 17:59 | Emergency (ER) | payer BC ==
[2018-07-11 18:01] VITALS: BMI 37.8
[2018-07-11 18:11] VITALS: BP 163/83
--- NOTE | 2018-07-11 18:17 | PDOC ---
History of Present Illness - History of Present Illness Initial Comments: 07/11/18 18:12 62 yo F with h/o HTN, HLD, NIDDM, CAD, who p/w retrosternal chest pain. Patient reports acute onset of non-exertional, retrosternal chest pain at approximately 1000 today, at rest. Described as chest pressure/pulling sensation. Denies chest trauma. Pain worse with neck flexion. Pain now improved. Endorses many social stressors. Patient denies palpitations, cough, wheezing, orthopnea, PND, N/V, F/C, SOB, urinary complaints, abdominal pain, diarrhea, constipation, BPR, hematuria, lightheadedness, weakness, sensory changes. PMHx: as noted above. Denies h/o ACS/VA, stent placment, CABG, abnml stress testing Surgical: cholecystectomy ROS: as noted SHx: Denies Etoh, IVDA, tobacco use. Allergies:NKDA PMD: Dr. melgar <Zelalem Guerrero - Last Filed: 07/11/18 19:12> <Alycia Banegas - Last Filed: 07/11/18 21:45> - General Chief Complaint: Chest Pain Stated Complaint: CHEST PAIN Time Seen by Provider: 07/11/18 18:07 Past History - Past Medical History Anemia: Yes Asthma: No Cancer: Yes (SQUAMOUS OR BASAL CELL) Cardiac Disorders: Yes (CAD) CVA: No COPD: No CHF: No Dementia: No Diabetes: Yes (NIDDM) GI Disorders: Yes (DIVERTICULOSIS, GERD, GASTRITIS, H/O H-PYLORI, HH, COLON POLYP,HIATAL HERNI) Disorders: No HTN: Yes Hypercholesterolemia: Yes Liver Disease: Yes (STEATOSIS OF LIVER) Seizures: No - Surgical History Abdominal Surgery: No Cardiac Surgery: No Cholecystectomy: Yes Lung Surgery: No Neurologic Surgery: Yes (CERVICAL FUSION) Orthopedic Surgery: No - Suicide/Smoking/Psychosocial Hx Smoking Status: No Smoking History: Never smoked Have you smoked in the past 12 months: No Number of Cigarettes Smoked Daily: 0 Hx Alcohol Use: No Drug/Substance Use Hx: No Substance Use Type: None <Zelalem Guerrero - Last Filed: 07/11/18 19:12> <Alycia Banegas - Last Filed: 07/11/18 21:45> - Past Medical History Allergies/Adverse Reactions: Allergies Allergy/AdvReac Type Severity Reaction Status Date / Time No Known Drug Allergies Allergy Verified 07/11/18 17:59 Home Medications: Ambulatory Orders Aspirin Coated [Ecotrin -] 81 mg PO DAILY 07/22/12 Nadolol 40 mg PO HS 07/22/12 Olmesartan Medoxomil [Benicar -] 40 mg PO DAILY 07/22/12 Pravastatin Sodium [Pravachol -] 40 mg PO HS 07/22/12 Glimepiride 1 mg PO BID 09/16/14 Sitagliptin Phos/Metformin HCl [Janumet 50-1,000 mg Tablet] 1 tab PO BID Pantoprazole Sodium 40 mg PO DAILY 06/10/16 Diltiazem HCl [Cartia Xt] 240 mg PO DAILY 12/06/16 Cholecalciferol (Vitamin D3) [Vitamin D3] 2,000 unit PO DAILY 01/14/18 Review of Systems - Review of Systems Comments:: 07/11/18 18:16 GENERAL/CONSTITUTIONAL: No fever or chills. No weakness. HEAD, EYES, EARS, NOSE AND THROAT: No change in vision. No ear pain or discharge. No sore throat. CARDIOVASCULAR: + chest pain. No shortness of breath RESPIRATORY: No cough, wheezing, or hemoptysis. GASTROINTESTINAL: No nausea, vomiting, diarrhea or constipation. GENITOURINARY: No dysuria, frequency, or change in urination. MUSCULOSKELETAL: No joint or muscle swelling or pain. No neck or back pain. SKIN: No rash NEUROLOGIC: No headache, vertigo, loss of consciousness, or change in strength/ sensation. ENDOCRINE: No increased thirst. No abnormal weight change HEMATOLOGIC/LYMPHATIC: No anemia, easy bleeding, or history of blood clots. ALLERGIC/IMMUNOLOGIC: No hives or skin allergy. <Zelalem Guerrero - Last Filed: 07/11/18 19:12> *Physical Exam - Vital Signs Last Vital Signs Temp Pulse Resp BP Pulse Ox 163/83 07/11/18 17:59 - Physical Exam Comments: 07/11/18 18:16 GENERAL: Awake, alert, and fully oriented, in no acute distress HEAD: No signs of trauma, normocephalic, atraumatic EYES: PERRLA, EOMI, sclera anicteric, conjunctiva clear ENT: Hearing grossly normal, nares patent, oropharynx clear without exudates. Moist mucosa NECK: Normal ROM, supple, no lymphadenopathy, JVD, or masses LUNGS: No distress, speaks full sentences, clear to auscultation bilaterally HEART: Regular rate and rhythm, normal S1 and S2, no murmurs, rubs or gallops, peripheral pulses normal and equal bilaterally. ABDOMEN: Soft, nontender, normoactive bowel sounds. No guarding, no rebound. No masses. Neg CVA ttp. EXTREMITIES : Normal inspection, Normal range of motion, no edema. No clubbing or cyanosis. SKIN: Warm, Dry, normal turgor, no rashes or lesions noted <Zelalem Guerrero - Last Filed: 07/11/18 19:12> - Vital Signs Last Vital Signs Temp Pulse Resp BP Pulse Ox 98.6 F 86 18 163/83 98 07/11/18 17:59 07/11/18 17:59 07/11/18 17:59 07/11/18 17:59 07/11/18 17:59 <Alycia Banegas - Last Filed: 07/11/18 21:45> Moderate Sedation - Procedure Monitoring Vital Signs: Procedure Monitoring Vital Signs Temperature Pulse Rate Respiratory Rate Blood Pressure 163/83 07/11/18 17:59 O2 Sat by Pulse Oximetry (%) <Zelalem Guerrero - Last Filed: 07/11/18 19:12> - Procedure Monitoring Vital Signs: Procedure Monitoring Vital Signs Temperature 98.6 F 07/11/18 17:59 Pulse Rate 86 07/11/18 17:59 Respiratory Rate 18 07/11/18 17:59 Blood Pressure 163/83 07/11/18 17:59 O2 Sat by Pulse Oximetry (%) 98 07/11/18 17:59 <Alycia Banegas - Last Filed: 07/11/18 21:45> ED Treatment Course - LABORATORY CBC & Chemistry Diagram: 07/11/18 19:00 07/11/18 19:00 - ADDITIONAL ORDERS Additional order review: Laboratory Results 07/11/18 07/11/18 07/11/18 20:30 19:05 19:05 Sodium Potassium Chloride Carbon Dioxide Anion Gap BUN Creatinine Creat Clearance w eGFR Random Glucose Calcium Total Bilirubin AST ALT Alkaline Phosphatase Creatine Kinase 44 Troponin I Total Protein Albumin Lipase 716 H Urine Color Yellow Urine Appearance Clear Urine pH 5.5 Ur Specific [place] <= 1.005 L Urine Protein Negative Urine Glucose (UA) Negative Urine Ketones Negative Urine Blood Negative Urine Nitrite Negative Urine Bilirubin Negative Urine Urobilinogen 0.2 Ur Leukocyte Esterase Trace H Urine RBC 0-2 Urine WBC 2-5 Ur Epithelial Cells 1+ Urine Bacteria 1+ 07/11/18 07/11/18 19:05 19:00 Sodium 136 Potassium 4.4 Chloride 103 Carbon Dioxide 23 Anion Gap 10 BUN 31 H Creatinine 1.4 H Creat Clearance w eGFR 37.86 Random Glucose 98 D Calcium 9.5 Total Bilirubin < 0.3 AST 29 D ALT 32 D Alkaline Phosphatase 99 H Creatine Kinase Troponin I < 0.03 Total Protein 7.0 Albumin 3.7 Lipase Urine Color Urine Appearance Urine pH Ur Specific [place] Urine Protein Urine Glucose (UA) Urine Ketones Urine Blood Urine Nitrite Urine Bilirubin Urine Urobilinogen Ur Leukocyte Esterase Urine RBC Urine WBC Ur Epithelial Cells Urine Bacteria 07/11/18 19:00 RBC 3.73 MCV 81.7 MCHC 31.6 L RDW 14.3 MPV 6.9 L Neutrophils % 67.2 Lymphocytes % 22.2 Monocytes % 7.3 Eosinophils % 2.9 Basophils % 0.4 - RADIOLOGY Radiology Studies Ordered: Category Date Time Status ABDOMEN & PELVIS CT WITH CONTR [CT] Stat CT Scan 07/11/18 20:08 Completed - Medications Given in the ED: ED Medications Discontinued Medications Generic Name Dose Route Start Last Admin Trade Name Freq PRN Reason Stop Dose Admin Al Hydroxide/Mg Hydroxide 30 ml 07/11/18 18:29 07/11/18 19:21 Mylanta Oral Suspension - PO 07/11/18 18:30 30 ml ONCE ONE Administration Aspirin 325 mg 07/11/18 18:29 07/11/18 19:20 Asa - PO 07/11/18 18:30 325 mg ONCE ONE Administration Ranitidine HCl 150 mg 07/11/18 18:29 07/11/18 19:20 Zantac - PO 07/11/18 18:30 150 mg ONCE ONE Administration <Alycia Banegas - Last Filed: 07/11/18 21:45> Medical Decision Making - Medical Decision Making 07/11/18 18:13 62 yo F with h/o HTN, HLD, NIDDM, CAD, who p/w non radiating, non exertional, retrosternal chest pain at rest. BP 163/83, vitals otherwise wnl, AF, A&Ox3 .ACS /VA r/o. R/o PNA. Low suspicion CHF, asthma/COPD, pericarditis, pleural effusion. pancreatitis, AAA, Ao dissection. Low risk PE based on Weils Criteria. Ed Course: cbc, cmp, cardiac pr.,lipase, EKG, CXR 07/11/18 18:36 EKG: NSR with absent RASHAD, STD, TWI. Nml axis and interval duration. Neg Q waves .nml R wave progression. 07/11/18 19:13 CXR: No acute pathology. Pending labs. Signed out to night team stable. <Zelalem Guerrero - Last Filed: 07/11/18 19:12> *DC/Admit/Observation/Transfer - Attestations Physician Attestion: 07/11/18 18:17 I attest to the information provided in this note. <Zelalem Guerrero - Last Filed: 07/11/18 19:12> <Alycia Banegas - Last Filed: 07/11/18 21:45> Diagnosis at time of Disposition: Atypical chest pain, Elevated lipase - Discharge Dispostion Disposition: HOME Condition at time of disposition: Stable - Referrals Referrals: Carmelo Melgar MD [Primary Care Provider] - - Patient Instructions Printed Discharge Instructions: DI for Atypical Chest Pain Additional Instructions: Please return to the emergency department with any new or worsening symptoms or concerns. Please follow up with your primary care physician within 72 hours. Please follow up with cardiology within one week. - Post Discharge Activity
[2018-07-11 18:23] VITALS: PULSE 86; TEMP 98.6
[2018-07-11] MEDS ORDERED: RANITIDINE HCL 150 MG TABLET (FP) PO ONE (18:29)
[2018-07-11] MEDS ORDERED: ASPIRIN 325 MG TABLET PO ONE (18:29)
[2018-07-11] MEDS ORDERED: MAG HYDROX/AL HYDROX/SIMETH 30 ML UNIT-DOSE CUP PO ONE (18:29)
[2018-07-11] MEDS ORDERED: ASPIRIN 325 MG TABLET ONE (19:09)
[2018-07-11] MEDS ORDERED: RANITIDINE HCL 150 MG TABLET (FP) ONE (19:09)
[2018-07-11] MEDS ORDERED: MAG HYDROX/AL HYDROX/SIMETH 30 ML UNIT-DOSE CUP ONE (19:10)
[2018-07-11 19:17] LABS: BASO % 0.4 % (0-2.0); EOS % 2.9 % (0-4.5); HEMATOCRIT 30.5 % (32.4-45.2); HEMOGLOBIN 9.6 GM/dl (10.7-15.3); LYMPH % 22.2 % (8-40); MCH 25.8 pg (25.7-33.7); MCHC 31.6 g/dl (32.0-36.0); MEAN CELL VOLUME 81.7 fl (80-96); MEAN PLT VOLUME 6.9 fl (7.5-11.1); MONO % 7.3 % (3.8-10.2); NEUT % 67.2 % (42.8-82.8); PLATELET COUNT 392 K/MM3 (134-434); RBC 3.73 M/mm3 (3.60-5.2); RDW 14.3 % (11.6-15.6); WHITE BLOOD COUNT 11.5 K/mm3 (4.0-10.8)
[2018-07-11 19:26] LABS: ALBUMIN 3.7 g/dl (3.5-5.0); ALK PHOS 99 U/L (32-92); ANION GAP 10 MMOL/L (8-16); BLOOD UREA NITROGEN 31 mg/dl (7-18); CALCIUM 9.5 mg/dl (8.4-10.2); CHLORIDE 103 mmol/L (98-107); CO2 23 mmol/L (22-28); CREATININE 1.4 mg/dl (0.6-1.3); GLUCOSE,RANDOM 98 mg/dl (74-106); POTASSIUM 4.4 mmol/L (3.5-5.1); SGOT/AST 29 U/L (10-42); SGPT/ALT 32 U/L (10-40); SODIUM 136 mmol/L (136-145)
[2018-07-11 19:29] LABS: BILIRUBIN,TOTAL < 0.3 mg/dl (0.2-1.0)
--- NOTE | 2018-07-11 19:33 | PDOC ---
Attending Attestation - HPI HPI: 07/11/18 19:56 Patient is a 62 year old female with a significant past medical history of HTN, HLD, CAD, who presents to the ED with complaints of chest pain that began this morning at 10am. Patient reports chest pain is a pressured pulling pain that does not increase with deep inspiration or exertion. She reports coming into the ED for further evaluation after pain did not subside over time. Patient reports being non compliant with medication for 2 days due to her blood pressure being low. Denies chest pain, Sob. Denies nausea, vomiting. Denies fevers, chills. Denies contact with sick individuals, out of state travelling. Denies any other symptoms. Allergies: NKDA Social history: No smoking. No illicit drugs. No alcohol use. Surgical history: cholecystectomy PMD: Dr. Melgar <Hermelindo Lopez - Last Filed: 07/11/18 19:56> - Resident Resident Name: Zelalem Guerrero - ED Attending Attestation I have performed the following: I have examined & evaluated the patient, The case was reviewed & discussed with the resident, I agree w/resident's findings & plan, Exceptions are as noted - Medical Decision Making Because of patient's lipase was 693 and she admits to intermittent chronic epigastric pain, abdomen/pelvis CT with IV contrast performed. No evidence of acute or chronic pancreatitis. Patient had previous cholecystectomy. No evidence of dilated CBD or stones within the CBD. Patient will be discharged with instructions to follow-up with her PMD within 72 hours and with the energy control officer within 1 week. If she has further chest pain /shortness of breath, she should return to the ER. <Alycia Banegas - Last Filed: 07/12/18 05:00> Heart Score/ECG Review - History History: Slightly suspicious - Electrocardiogram EKG: Normal - Age Age: 45-65 - Risk Factors Risk Factors Heart Score: Yes Hx Diabetes, Yes Hx Obesity Based on the list above the patient has:: 1-2 risk factors - Troponin Troponin: </= normal limit - Score Heart Score - Total: 2 <Alycia Banegas - Last Filed: 07/12/18 05:00>
[2018-07-11 20:36] LABS: PH,URINE 5.5 (4.5-8); URINE APPEARANCE Clear; URINE BILIRUBIN Negative (NEGATIVE); URINE COLOR Yellow; URINE GLUCOSE (UA) Negative (NEGATIVE); URINE KETONE Negative (NEGATIVE); URINE LEUK ESTERASE TRACE (NEGATIVE); URINE NITRITE Negative (NEGATIVE); URINE PROTEIN Negative (NEGATIVE); URINE UROBILINOGEN 0.2 (0.2-1.0)
[2018-07-11 20:49] LABS: EPI CELLS 1+ /HPF; URINE RBC 0-2 /hpf (0-3)
[2018-07-11 20:50] LABS: URINE BACTERIA 1+ /hpf (NEGATIVE)
[2018-07-11] MEDS ORDERED: KETOROLAC TROMETHAMINE 30 MG/1 ML VIAL IVPUSH ONE (21:42)
[2018-07-11] MEDS ORDERED: KETOROLAC TROMETHAMINE 30 MG/1 ML VIAL ONE (21:47)
--- NOTE | 2018-07-12 12:47 | EKG ---
Test Reason : Blood Pressure : / mmHG Vent. Rate : 087 BPM Atrial Rate : 087 BPM P-R Int : 194 ms QRS Dur : 070 ms QT Int : 362 ms P-R-T Axes : 059 041 063 degrees QTc Int : 435 ms NORMAL SINUS RHYTHM NORMAL ECG WHEN COMPARED WITH ECG OF 06-DEC-2016 19:05, NO SIGNIFICANT CHANGE WAS FOUND Confirmed by RINKU KIRBY MD ([id number]) on 07/12/2018 12:47:05 PM Referred By: MD GARCIA Confirmed By:RINKU KIRBY MD
== END 2018-07-11 21:55 | disposition home or self-care (01) ==
LOC: FER 17:59
PROC: 3E0333Z Introduction of Anti-inflammatory into Peripheral Vein, Percutaneous Approach (ICD-10-PCS; principal; 2018-07-11)
DX: R07.89 Other chest pain (principal); R74.8 Abnormal levels of other serum enzymes; I10 Essential (primary) hypertension; E78.5 Hyperlipidemia, unspecified; I25.10 Atherosclerotic heart disease of native coronary artery without angina pectoris; E11.9 Type 2 diabetes mellitus without complications; Z79.84 Long term (current) use of oral hypoglycemic drugs; Z85.828 Personal history of other malignant neoplasm of skin; K76.0 Fatty (change of) liver, not elsewhere classified; K21.9 Gastro-esophageal reflux disease without esophagitis
CPT/HCPCS: 36415; 71046-TC-FY; 74177-TC; 80053; 81003; 81015; 82550; 83690; 84484; 85025; 93005; 99283-25

== ENCOUNTER 2019-06-11 11:34 | Emergency (ER) | payer BC ==
[2019-06-11 11:40] VITALS: BP 150/76; PULSE 84; TEMP 98.7; BMI 37.4
--- NOTE | 2019-06-11 12:01 | PDOC ---
History of Present Illness - General Chief Complaint: Pain Stated Complaint: bloating and stiff hands x2-3 weeks Time Seen by Provider: 06/11/19 11:37 - History of Present Illness Initial Comments: 06/11/19 11:57 63 yo F PMH HTN, HLD, CAD, cervical and thoracic surgeries in December and January 2019, p/w multiple complaints. Patient states that for the past 3 weeks she has felt a bloating sensation coming up into her chest, relieved by burping. Further complains of cold and tingling hands in the morning and generalized fatigue. Patient notes that she is concerned that her potassium level may be low and leading to her symptoms considering she is on HCTZ, despite not having this happen before. Reports a negative stress test two weeks ago. States that she is here today because she had hours of bloating sensation yesterday and her PCP's office was not open today. Specifically denies CP, SOB, abdominal pain, [place], N/V, constipation/diarrhea. Endorses bloating, generalized fatigue, and cold, tingling hands in the morning. Past History - Past Medical History Allergies/Adverse Reactions: Allergies Allergy/AdvReac Type Severity Reaction Status Date / Time No Known Drug Allergies Allergy Verified 06/11/19 11:36 Home Medications: Ambulatory Orders Nadolol 40 mg PO HS 07/22/12 Olmesartan Medoxomil [Benicar -] 20 mg PO DAILY 07/22/12 Pravastatin Sodium [Pravachol -] 40 mg PO HS 07/22/12 Glimepiride 1 mg PO BID 09/16/14 Pantoprazole Sodium 40 mg PO DAILY 06/10/16 Diltiazem HCl [Cartia Xt] 300 mg PO HS 12/06/16 Gabapentin [Neurontin] 100 mg PO BID 06/11/19 Hydrochlorothiazide 12.5 mg PO DAILY 06/11/19 Sitagliptin Phos/Metformin HCl [Janumet 50-1,000 mg Tablet] 1 each PO BID Anemia: Yes Asthma: No Cancer: No Cardiac Disorders: Yes (CAD) CVA: No COPD: No CHF: No Dementia: No Diabetes: Yes GI Disorders: Yes (DIVERTICULOSIS, GERD, GASTRITIS, H/O H-PYLORI, HH, COLON POLYP,HIATAL HERNI) Disorders: No HTN: Yes Hypercholesterolemia: Yes Liver Disease: Yes (STEATOSIS OF LIVER) Seizures: No - Surgical History Abdominal Surgery: No Cardiac Surgery: No Cholecystectomy: Yes Lung Surgery: No Neurologic Surgery: Yes (CERVICAL & lumbar FUSION) Orthopedic Surgery: No - Psycho Social/Smoking Cessation Hx Smoking Status: No Smoking History: Never smoked Have you smoked in the past 12 months: No Number of Cigarettes Smoked Daily: 0 Hx Alcohol Use: No Drug/Substance Use Hx: No Substance Use Type: None Review of Systems - Review of Systems Comments:: 06/11/19 12:03 GENERAL/CONSTITUTIONAL: No fever or chills. Generalized fatigue. HEAD, EYES, EARS, NOSE AND THROAT: No change in vision. No ear pain or discharge. No sore throat. CARDIOVASCULAR: No chest pain or shortness of breath. RESPIRATORY: No cough, wheezing, or hemoptysis. GASTROINTESTINAL: No nausea, vomiting, diarrhea or constipation. Intermittent bloating sensation. GENITOURINARY: No dysuria, frequency, or change in urination. MUSCULOSKELETAL: No joint or muscle swelling or pain. No neck or back pain. Cold tingling hands in the morning. SKIN: No rash NEUROLOGIC: No headache, vertigo, loss of consciousness, or change in strength/ sensation. ENDOCRINE: No increased thirst. No abnormal weight change. HEMATOLOGIC/LYMPHATIC: No anemia, easy bleeding, or history of blood clots. ALLERGIC/IMMUNOLOGIC: No hives or skin allergy *Physical Exam - Vital Signs Last Vital Signs Temp Pulse Resp BP Pulse Ox 98.7 F 84 16 150/76 98 06/11/19 11:36 06/11/19 11:36 06/11/19 11:36 06/11/19 11:36 06/11/19 11:36 ED Treatment Course - LABORATORY CBC & Chemistry Diagram: 06/11/19 11:58 06/11/19 11:58 - RADIOLOGY Radiology Studies Ordered: Category Date Time Status ABDOMEN-KUB FLAT PLATE [RAD] Stat Radiology 06/11/19 11:56 Ordered Medical Decision Making - Medical Decision Making 06/11/19 12:02 Concern for ACS vs anemia vs electrolyte abnormality. - CBC, CMP - EKG, trop - reassess 06/11/19 12:40 Hgb 8.9, lower than normal for the patient. Na 132 with Glu 242, corrects to 134. 06/11/19 12:53 Patient refuses heme occult. Discharge - Discharge Information Problems reviewed: Yes Clinical Impression/Diagnosis: Anemia, Fatigue Condition: Stable - Follow up/Referral - Patient Discharge Instructions Additional Instructions: As discussed, your blood work revealed anemia (hemoglobin 8.9), which is lower than it has been in the past. This may be due to bleeding from your GI tract. Follow-up with Dr. Melgar within 1 week for repeat labs and further evaluation. Also, follow up with Dr. Benito within 1-2 weeks. Return to the emergency department if you have any new, worsening or concerning symptoms. We hope you feel better soon. - Post Discharge Activity
[2019-06-11 12:20] LABS: BASO % 0.2 % (0-2.0); EOS % 1.2 % (0-4.5); HEMATOCRIT 28.4 % (32.4-45.2); HEMOGLOBIN 8.9 GM/dl (10.7-15.3); LYMPH % 19.1 % (8-40); MCH 25.4 pg (25.7-33.7); MCHC 31.5 g/dl (32.0-36.0); MEAN CELL VOLUME 80.7 fl (80-96); MEAN PLT VOLUME 6.9 fl (7.5-11.1); MONO % 7.1 % (3.8-10.2); NEUT % 72.4 % (42.8-82.8); PLATELET COUNT 359 K/MM3 (134-434); RBC 3.52 M/mm3 (3.60-5.2); RDW 14.7 % (11.6-15.6); WHITE BLOOD COUNT 9.9 K/mm3 (4.0-10.8)
[2019-06-11 12:28] LABS: ALBUMIN 3.1 g/dl (3.4-5.0); BILIRUBIN,TOTAL 0.5 mg/dl (0.2-1); CREATININE 1.3 mg/dl (0.55-1.3); POTASSIUM 4.7 mmol/L (3.5-5.1); TOT PROT 6.3 g/dl (6.4-8.2)
--- NOTE | 2019-06-11 13:21 | PDOC ---
Attending Attestation - Resident Resident Name: Melita Keys - ED Attending Attestation I have performed the following: I have examined & evaluated the patient, The case was reviewed & discussed with the resident, I agree w/resident's findings & plan, Exceptions are as noted - HPI HPI: 06/11/19 13:16 63-year-old female with a history of hypertension, hyperlipidemia, coronary artery disease, mjv-[id number] diabetes, cervical and thoracic surgeries , anemia presents emergency department with multiple complaints. She reports 3 weeks of intermittent abdominal bloating with a sensation of bloating moving upper chest. She reports the bloating is always relieved by burping. She reports the bloating lasted a little bit longer than usual last night which made her concerned today. She states that her primary care doctor was not available today, prompting her to come to the emergency department. In addition , she reports concern that her potassium level might be low as she has had stiffness in her hands in the morning. She states the stiffness often resolves as the day progresses. 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 She denies weakness or numbness in her hands, but states due to the stiffness at times, it is difficult to range her hands. The patient's physical therapist recommended that she have her potassium level checked as this may be causing the symptoms in her hands. Patient also is complaining of generalized fatigue for the last 6 months. She denies any fevers or chills. Denies headache, dizziness, focal weakness or numbness, chest pain, shortness of breath, abdominal pain, dark/bloody stools, nausea, vomiting, diarrhea sedation, lower extremity edema or urinary symptoms. - Physicial Exam PE: 06/11/19 13:21 GENERAL: Awake, alert, and fully oriented, in no acute distress. Well appearing. HEAD: No signs of trauma EYES: PERRLA, EOMI, sclera anicteric, conjunctiva clear ENT: Oropharynx clear without exudates. Moist mucosa NECK: Normal ROM, supple, no lymphadenopathy, JVD, or masses. BACK: No midline cervical, thoracic, or lumbar ttp LUNGS: Breath sounds equal, clear to auscultation bilaterally. No wheezes, and no crackles HEART: Regular rate and rhythm, normal S1 and S2, no murmurs, rubs or gallops ABDOMEN: Soft, nontender, normoactive bowel sounds. No guarding, no rebound. No masses EXTREMITIES: Normal range of motion, no edema. No clubbing or cyanosis. No cords, erythema, or tenderness. WWP, 2+ pulses x4. NEUROLOGICAL: Normal speech, cranial nerves intact, negative pronator drift, 5/ 5 strength in all 4 extremities, normal sensation to light touch in all 4 extremities, normal cerebellar exam, normal gait, normal reflexes and tone SKIN: Warm, Dry, normal turgor, no rashes or lesions noted. - Medical Decision Making 06/11/19 13:26 63-year-old female known history of hypertension, hyperlipidemia, diabetes, coronary artery disease, anemia presents emergency department with multiple complaints. With regards to abdominal bloating, patient has no abdominal tenderness to palpation on serial abdominal exams. Her blood work reveals no white count and normal LFTs. An abdominal x-ray was obtained which did not show any distended bowel. She states that her bloating resolves with belching, may be related to gas pain. An EKG and troponin were obtained to eval for ischemia which were unremarkable. With regards to complaint of hand stiffness in the morning, it is possible that patient has arthritis as symptoms resolve the day progresses. She is also a national secretary and types a lot which may be exacerbating an arthritic process. Will defer to PMD for further w/u as she is neurovasc intact. With regards to complaint of generalized weakness, patient was found to be anemic with a hemoglobin of 8.9. Compared to previous values in our EMR, this is lower than usual. She was offered a rectal exam for guaiac here in the ED, however she declined it and prefers to follow-up with her primary doctor. Patient reports a colonoscopy, endoscopy, and capsule study a bit over a year ago which were reportedly normal - she states they were done due to possible GI bleeding. She denies dark or bloody stools recently. Hgb 8.9 is not low enough to transfuse, however, will have pt rpt CBC at PMDs office for further evaluation. At this time, she feels well and is eager for discharge home. All results have been discussed at length with the patient and her . Return precautions have been discussed as well. Patient to follow-up with her primary care physician Dr. Melgar and her occupational health nursing director Dr. Benito as an outpatient. I discussed the physical exam findings, ancillary test results and final diagnoses with the patient. I answered all of the patient's questions. The patient was satisfied with the care received and felt comfortable with the discharge plan and treatment plan. The patient will call their primary care physician within 24 hours to arrange follow-up and will return to the Emergency Department with any new, persistent or worsening symptoms.
--- NOTE | 2019-06-12 10:11 | EKG ---
Test Reason : Blood Pressure : / mmHG Vent. Rate : 079 BPM Atrial Rate : 079 BPM P-R Int : 180 ms QRS Dur : 068 ms QT Int : 394 ms P-R-T Axes : 049 037 056 degrees QTc Int : 451 ms NORMAL SINUS RHYTHM NORMAL ECG WHEN COMPARED WITH ECG OF 01-FEB-2019 13:31, NO SIGNIFICANT CHANGE WAS FOUND Confirmed by EFRAIN GUERRA MD ([id number]) on 06/12/2019 10:10:40 AM Referred By: Confirmed By:EFRAIN GUERRA MD
== END 2019-06-11 13:18 | disposition home or self-care (01) ==
LOC: FER 11:34
DX: R53.83 Other fatigue (principal); D64.9 Anemia, unspecified; I10 Essential (primary) hypertension; E78.5 Hyperlipidemia, unspecified; I25.10 Atherosclerotic heart disease of native coronary artery without angina pectoris; M54.2 Cervicalgia
CPT/HCPCS: 36415; 74018-TC-FY; 80053; 84484; 85025; 93005; 99282-25

== ENCOUNTER 2020-06-10 05:31 | Day surgery (SDC) | payer BC, OTHER ==
[2020-06-09 12:20] VITALS: BMI 40.2
[2020-06-10 10:24] VITALS: TEMP 97.8
[2020-06-10 11:58] VITALS: BP 149/59; PULSE 74
== END 2020-06-10 11:30 | disposition home or self-care (01) ==
LOC: JASU-ENDO 05:31
PROVIDERS: ATTEND Internal Medicine Gastroenterology
PROC: 0DBN8ZX Excision of Sigmoid Colon, Via Natural or Artificial Opening Endoscopic, Diagnostic (ICD-10-PCS; 2020-06-10)
PROC: 3E0H8KZ Introduction of Other Diagnostic Substance into Lower GI, Via Natural or Artificial Opening Endoscopic (ICD-10-PCS; 2020-06-10)
PROC: 0DBL8ZX Excision of Transverse Colon, Via Natural or Artificial Opening Endoscopic, Diagnostic (ICD-10-PCS; principal; 2020-06-10 09:00)
DX: Z12.11 Encounter for screening for malignant neoplasm of colon (principal); Z86.010 Personal history of colon polyps; Z80.0 Family history of malignant neoplasm of digestive organs; D12.4 Benign neoplasm of descending colon; D12.5 Benign neoplasm of sigmoid colon; D12.3 Benign neoplasm of transverse colon; K64.8 Other hemorrhoids; K57.30 Diverticulosis of large intestine without perforation or abscess without bleeding; E11.9 Type 2 diabetes mellitus without complications; I10 Essential (primary) hypertension; E66.01 Morbid (severe) obesity due to excess calories
CPT/HCPCS: 88305-TC

== ENCOUNTER 2020-06-22 04:59 | Day surgery (SDC) | payer BC, OTHER ==
[2020-06-17 09:37] VITALS: BMI 37.8
[2020-06-22 08:28] VITALS: TEMP 97.9
[2020-06-22 08:57] VITALS: PULSE 69
[2020-06-22 09:20] VITALS: BP 157/69
== END 2020-06-22 09:25 | disposition home or self-care (01) ==
LOC: JASU-ENDO 04:59
PROVIDERS: ATTEND Internal Medicine Gastroenterology
PROC: 0DB68ZX Excision of Stomach, Via Natural or Artificial Opening Endoscopic, Diagnostic (ICD-10-PCS; 2020-06-22)
PROC: 0DB98ZX Excision of Duodenum, Via Natural or Artificial Opening Endoscopic, Diagnostic (ICD-10-PCS; principal; 2020-06-22 08:00)
DX: K29.50 Unspecified chronic gastritis without bleeding (principal); K31.9 Disease of stomach and duodenum, unspecified; R10.13 Epigastric pain; R11.2 Nausea with vomiting, unspecified
CPT/HCPCS: 88305-TC; 88342-TC

== ENCOUNTER 2021-07-11 02:24 | Inpatient (IN) | payer BC, OTHER ==
[2021-07-11] MEDS ORDERED: ONDANSETRON 4 MG/2 ML VIAL IVPB ONE (03:59)
[2021-07-11] MEDS ORDERED: ONDANSETRON 4 MG/2 ML VIAL ONE (04:07)
[2021-07-11 04:13] LABS: BASO % 0.4 % (0-2.0); EOS % 0.1 % (0-4.5); HEMATOCRIT 26.2 % (32.4-45.2); HEMOGLOBIN 8.8 GM/dL (10.7-15.3); LYMPH % 4.9 % (8-40); MCH 27.2 pg (25.7-33.7); MCHC 33.5 g/dl (32.0-36.0); MEAN CELL VOLUME 81.2 fl (80-96); MEAN PLT VOLUME 6.4 fl (7.5-11.1); MONO % 12.7 % (3.8-10.2); NEUT % 81.9 % (42.8-82.8); PLATELET COUNT 256 10^3/uL (134-434); RBC 3.23 M/mm3 (3.60-5.2); RDW 14.7 % (11.6-15.6)
[2021-07-11 04:23] LABS: INR 1.34 (0.83-1.09); PROTHROMBIN TIME (PATIENT) 15.5 SEC (9.7-13.0)
[2021-07-11 05:05] LABS: VENOUS BASE EXCESS -1.5 mmol/L (-2-2); VENOUS O2 SATURATION 45.5 % (70-80); VENOUS PCO2 45.1 mmHg (38-52); VENOUS PH 7.347 (7.310-7.410)
[2021-07-11] MEDS ORDERED: SODIUM CHLORIDE 0.9% 500 ML INFUS.BAG IV ONE (07:57)
[2021-07-11 08:01] LABS: CHLORIDE 95 mmol/L (98-107); SODIUM 130 mmol/L (136-145)
[2021-07-11 08:03] LABS: CALCIUM 8.8 mg/dL (8.5-10.1)
[2021-07-11 08:04] LABS: ALBUMIN 2.7 g/dl (3.4-5.0); ANION GAP 13 MMOL/L (8-16); BLOOD UREA NITROGEN 44.3 mg/dL (7-18); CO2 22 mmol/L (21-32); GLUCOSE,RANDOM 164 mg/dL (74-106)
[2021-07-11 08:07] LABS: CREATININE 2.3 mg/dL (0.55-1.3); SGOT/AST 11 U/L (15-37); SGPT/ALT 14 U/L (13-61)
[2021-07-11 08:09] LABS: ALK PHOS 82 U/L (45-117); BILIRUBIN,TOTAL 0.3 mg/dL (0.2-1); LDH 179 U/L (84-246)
[2021-07-11 08:48] LABS: EPI CELLS >36 /uL (0-25.1); HYALINE CASTS 9 /uL (0-3.1); URINE APPEARANCE CLOUDY; URINE BACTERIA 149 /uL (0-1359); URINE BILIRUBIN 1+ (NEGATIVE); URINE COLOR DK YELLOW; URINE GLUCOSE (UA) NEGATIVE (NEGATIVE); URINE KETONE TRACE (NEGATIVE); URINE LEUK ESTERASE 1+ (NEGATIVE); URINE NITRITE NEGATIVE (NEGATIVE); URINE PROTEIN 2+ (NEGATIVE); URINE RBC 18 /uL (0-23.9); URINE WBC 65 /uL (0-25.8)
[2021-07-11] MEDS ORDERED: SODIUM CHLORIDE 1,000 ML IV SCH (17:15)
[2021-07-11] MEDS: INSULIN SLIDING SCALE (NOVOLOG) 1 VIAL SQ SCH (22:42)
[2021-07-12 01:12] VITALS: BMI 32.9
[2021-07-12] MEDS: INSULIN SLIDING SCALE (NOVOLOG) 1 VIAL SQ SCH ×4 (07:16→22:07)
[2021-07-12 09:18] LABS: ALBUMIN 2.5 g/dl (3.4-5.0); BILIRUBIN,TOTAL 0.8 mg/dl (0.2-1); CALCIUM 8.6 mg/dl (8.5-10); CREATININE 1.5 mg/dl (0.55-1.3); MAGNESIUM 1.4 mg/dL (1.8-2.4); PHOSPHOROUS 2.1 mg/dl (2.5-4.9); TOT PROT 5.4 g/dl (6.4-8.2)
[2021-07-12 09:46] LABS: ACTIVATED PTT 26.9 SECONDS (25.2-36.5)
[2021-07-12] MEDS ORDERED: MAGNESIUM 2GM/50ML STERILE WATER IVPB IVPB ONE (09:50)
[2021-07-12 09:51] LABS: INR 1.32 (0.83-1.09); PROTHROMBIN TIME (PATIENT) 14.7 SEC (9.7-13.0)
[2021-07-12] MEDS ORDERED: NADOLOL 40 MG TABLET (FP) PO SCH (10:00)
[2021-07-12 10:22] LABS: HEMOGLOBIN 8.2 GM/dL (10.7-15.3); MCH 27.8 pg (25.7-33.7); MCHC 34.4 g/dl (32.0-36.0); MEAN CELL VOLUME 80.8 fl (80-96); MEAN PLT VOLUME 6.5 fl (7.5-11.1); PLATELET COUNT 234 10^3/uL (134-434); RBC 2.97 M/mm3 (3.60-5.2); RDW 14.4 % (11.6-15.6); WHITE BLOOD COUNT 9.2 K/mm3 (4.0-10.0)
[2021-07-12] MEDS: NADOLOL 20 MG TABLET (FP) PO SCH ×2 (10:45→21:46)
[2021-07-12] MEDS: ACETAMINOPHEN 325 MG TABLET (FP) PO PRN ×2 (10:45→22:06)
[2021-07-12] MEDS: ONDANSETRON 4 MG/2 ML VIAL IVPUSH PRN ×2 (10:45→17:41)
[2021-07-12] MEDS: NAPH,MB-DB/K PH,MBDB POWDER PACKET PO SCH ×2 (10:45→22:01)
[2021-07-12] MEDS: SODIUM CHLORIDE 1,000 ML IV SCH (10:46)
[2021-07-12 11:46] LABS: ANISOCYTOSIS 1+; MACROCYTOSIS 1+; PLATELET ESTIMATE NORMAL
[2021-07-12 16:37] LABS: CREATININE, URINE RANDOM 191.2 mg/dL
[2021-07-13] MEDS: ONDANSETRON 4 MG/2 ML VIAL IVPUSH PRN (06:04)
[2021-07-13] MEDS: ACETAMINOPHEN 325 MG TABLET (FP) PO PRN ×2 (06:05→21:18)
[2021-07-13] MEDS: INSULIN SLIDING SCALE (NOVOLOG) 1 VIAL SQ SCH ×4 (06:58→21:22)
[2021-07-13 08:51] LABS: ALBUMIN 2.4 g/dl (3.4-5.0); BILIRUBIN,TOTAL 1.2 mg/dl (0.2-1); CALCIUM 8.6 mg/dl (8.5-10); CREATININE 1.5 mg/dl (0.55-1.3); MAGNESIUM 1.9 mg/dL (1.8-2.4); TOT PROT 5.5 g/dl (6.4-8.2)
[2021-07-13] MEDS ORDERED: cefTRIAXone SODIUM 1 GM VIAL ONE (09:14)
[2021-07-13] MEDS ORDERED: DEXTROSE 5%-WATER - 50 ML IVPB ONE (09:14)
[2021-07-13] MEDS: CEFTRIAXONE 1 GM in DEXTROSE 5%-WATER - 50 ML IVPB SCH (09:52)
[2021-07-13] MEDS: NAPH,MB-DB/K PH,MBDB POWDER PACKET PO SCH ×2 (09:53→21:18)
[2021-07-13] MEDS: NADOLOL 20 MG TABLET (FP) PO SCH ×2 (09:53→21:18)
[2021-07-13] MEDS: SODIUM CHLORIDE 1,000 ML IV SCH (09:54)
[2021-07-13 10:45] LABS: BASO % 0.1 % (0-2.0); EOS % 0.1 % (0-4.5); HEMATOCRIT 24.9 % (32.4-45.2); HEMOGLOBIN 8.3 GM/dL (10.7-15.3); LYMPH % 2.3 % (8-40); MCH 27.2 pg (25.7-33.7); MCHC 33.4 g/dl (32.0-36.0); MEAN CELL VOLUME 81.6 fl (80-96); MEAN PLT VOLUME 6.6 fl (7.5-11.1); NEUT % 87.5 % (42.8-82.8); PLATELET COUNT 265 10^3/uL (134-434); RBC 3.05 M/mm3 (3.60-5.2); RDW 14.7 % (11.6-15.6); WHITE BLOOD COUNT 12.8 K/mm3 (4.0-10.0)
[2021-07-14] MEDS ORDERED: POLYETHYLENE GLYCOL (HEALTHYLAX) 3350 17 GM PACKET PO PRN (02:01)
[2021-07-14] MEDS: DOCUSATE SODIUM 100 MG CAPSULE (FP) PO SCH ×2 (02:21→21:14)
[2021-07-14] MEDS: INSULIN SLIDING SCALE (NOVOLOG) 1 VIAL SQ SCH ×4 (06:35→21:15)
[2021-07-14 09:06] LABS: ALBUMIN 2.3 g/dl (3.4-5.0); BILIRUBIN,TOTAL 0.7 mg/dl (0.2-1); CALCIUM 8.7 mg/dl (8.5-10); CREATININE 1.4 mg/dl (0.55-1.3); TOT PROT 5.7 g/dl (6.4-8.2)
[2021-07-14 10:13] LABS: BASO % 0.1 % (0-2.0); EOS % 0.6 % (0-4.5); HEMATOCRIT 25.3 % (32.4-45.2); HEMOGLOBIN 8.1 GM/dL (10.7-15.3); LYMPH % 4.5 % (8-40); MCH 26.1 pg (25.7-33.7); MEAN CELL VOLUME 81.8 fl (80-96); MEAN PLT VOLUME 6.6 fl (7.5-11.1); MONO % 8.8 % (3.8-10.2); PLATELET COUNT 317 10^3/uL (134-434); RDW 14.9 % (11.6-15.6); WHITE BLOOD COUNT 13.1 K/mm3 (4.0-10.0)
[2021-07-14] MEDS ORDERED: cefTRIAXone SODIUM 1 GM VIAL ONE (11:12)
[2021-07-14] MEDS ORDERED: DEXTROSE 5%-WATER - 50 ML IVPB ONE ×2 (11:12→16:59)
[2021-07-14] MEDS: CEFTRIAXONE 1 GM in DEXTROSE 5%-WATER - 50 ML IVPB SCH (11:34)
[2021-07-14] MEDS: NADOLOL 20 MG TABLET (FP) PO SCH ×2 (11:35→21:14)
[2021-07-14] MEDS: SODIUM CHLORIDE 1,000 ML IV SCH (11:36)
[2021-07-14 11:45] LABS: MAGNESIUM 2.5 mg/dL (1.8-2.4)
[2021-07-14] MEDS: HYDROXYCHLOROQUINE SO4 200 MG TABLET (FP) PO SCH (14:00)
[2021-07-14 14:13] LABS: SARS-CoV-2 NAA Not Detected (Not Detected)
[2021-07-14] MEDS ORDERED: PIPERACILLIN/TAZOBACTAM 3.375 GM VIAL IVPB ONE (16:58)
[2021-07-14] MEDS: PIPERACILLIN/TAZOB 3.375 GM 3.375 GM in DEXTROSE 5%-WATER - 50 ML IVPB SCH (17:18)
[2021-07-15] MEDS: HYDROXYCHLOROQUINE SO4 200 MG TABLET (FP) PO SCH ×2 (00:05→13:25)
[2021-07-15] MEDS: PIPERACILLIN/TAZOB 3.375 GM 3.375 GM in DEXTROSE 5%-WATER - 50 ML IVPB SCH ×3 (02:00→18:50)
[2021-07-15] MEDS: INSULIN SLIDING SCALE (NOVOLOG) 1 VIAL SQ SCH ×3 (06:13→21:03)
[2021-07-15 08:42] LABS: ALBUMIN 2.1 g/dl (3.4-5.0); BILIRUBIN,TOTAL 0.7 mg/dl (0.2-1); CALCIUM 8.5 mg/dl (8.5-10); CREATININE 1.4 mg/dl (0.55-1.3); MAGNESIUM 1.6 mg/dL (1.8-2.4); TOT PROT 5.2 g/dl (6.4-8.2)
[2021-07-15] MEDS ORDERED: DEXTROSE 5%-WATER - 50 ML IVPB ONE ×3 (09:25→17:19)
[2021-07-15] MEDS ORDERED: PIPERACILLIN/TAZOBACTAM 3.375 GM VIAL IVPB ONE ×3 (09:25→17:19)
[2021-07-15] MEDS: NADOLOL 20 MG TABLET (FP) PO SCH ×2 (09:38→21:03)
[2021-07-15] MEDS: PANTOPRAZOLE 40 MG TABLET PO SCH (09:38)
[2021-07-15 10:34] LABS: BASO % 0.3 % (0-2.0); EOS % 0.9 % (0-4.5); HEMATOCRIT 22.5 % (32.4-45.2); HEMOGLOBIN 7.3 GM/dL (10.7-15.3); LYMPH % 6.2 % (8-40); MCH 26.5 pg (25.7-33.7); MCHC 32.3 g/dl (32.0-36.0); MEAN PLT VOLUME 6.7 fl (7.5-11.1); MONO % 11.7 % (3.8-10.2); NEUT % 80.9 % (42.8-82.8); PLATELET COUNT 330 10^3/uL (134-434); RBC 2.75 M/mm3 (3.60-5.2); RDW 14.7 % (11.6-15.6); WHITE BLOOD COUNT 10.5 K/mm3 (4.0-10.0)
[2021-07-15] MEDS ORDERED: MAGNESIUM SULF 50% (8.12 MEQ/2 ML-1 GM VIAL) IVPB ONE (13:45)
[2021-07-15] MEDS: ACETAMINOPHEN 325 MG TABLET (FP) PO PRN (14:16)
[2021-07-15] MEDS: ENOXAPARIN NA (PORCINE) 40 MG/0.4 ML DISP.SYRIN SQ SCH (16:55)
[2021-07-15] MEDS: DOCUSATE SODIUM 100 MG CAPSULE (FP) PO SCH (21:02)
[2021-07-15] MEDS ORDERED: FUROSEMIDE 40 MG/4 ML INJECTABLE VIAL IVPUSH ONE (23:00)
[2021-07-16] MEDS: HYDROXYCHLOROQUINE SO4 200 MG TABLET (FP) PO SCH ×2 (01:00→13:09)
[2021-07-16] MEDS: PIPERACILLIN/TAZOB 3.375 GM 3.375 GM in DEXTROSE 5%-WATER - 50 ML IVPB SCH ×2 (02:00→10:24)
[2021-07-16] MEDS ORDERED: PIPERACILLIN/TAZOBACTAM 3.375 GM VIAL IVPB ONE ×2 (03:11→09:24)
[2021-07-16] MEDS ORDERED: DEXTROSE 5%-WATER - 50 ML IVPB ONE ×2 (03:12→09:24)
[2021-07-16] MEDS ORDERED: FUROSEMIDE 40 MG/4 ML INJECTABLE VIAL ONE (03:33)
[2021-07-16] MEDS: INSULIN SLIDING SCALE (NOVOLOG) 1 VIAL SQ SCH ×3 (06:17→11:33)
[2021-07-16 06:27] VITALS: BP 132/58; PULSE 71; TEMP 97.7
[2021-07-16 08:42] LABS: ALBUMIN 2.2 g/dl (3.4-5.0); BILIRUBIN,TOTAL 1.1 mg/dl (0.2-1); CALCIUM 8.8 mg/dl (8.5-10); CREATININE 1.4 mg/dl (0.55-1.3); MAGNESIUM 2.1 mg/dL (1.8-2.4); TOT PROT 5.7 g/dl (6.4-8.2)
[2021-07-16 09:42] LABS: BASO % 0.3 % (0-2.0); EOS % 2.1 % (0-4.5); HEMATOCRIT 27.2 % (32.4-45.2); HEMOGLOBIN 9.1 GM/dL (10.7-15.3); LYMPH % 8.6 % (8-40); MCH 27.8 pg (25.7-33.7); MCHC 33.5 g/dl (32.0-36.0); MEAN CELL VOLUME 83.1 fl (80-96); MEAN PLT VOLUME 6.3 fl (7.5-11.1); MONO % 12.4 % (3.8-10.2); NEUT % 76.6 % (42.8-82.8); PLATELET COUNT 378 10^3/uL (134-434); RBC 3.27 M/mm3 (3.60-5.2); RDW 15.2 % (11.6-15.6); WHITE BLOOD COUNT 10.2 K/mm3 (4.0-10.0)
[2021-07-16] MEDS: PANTOPRAZOLE 40 MG TABLET PO SCH (10:25)
[2021-07-16] MEDS: ENOXAPARIN NA (PORCINE) 40 MG/0.4 ML DISP.SYRIN SQ SCH (10:27)
[2021-07-16] MEDS: NADOLOL 20 MG TABLET (FP) PO SCH (10:27)
== END 2021-07-16 13:34 | disposition home or self-care (01) | DRG 683 ==
LOC: JER 02:24 → JERBED 09:21 → FM/S 07-12 00:56
PROVIDERS: ADMIT Family Medicine; ATTEND Nurse Practitioner Acute Care
PROC: 30233N1 Transfusion of Nonautologous Red Blood Cells into Peripheral Vein, Percutaneous Approach (ICD-10-PCS; principal; 2021-07-15)
DX: N17.9 Acute kidney failure, unspecified (principal); E87.1 Hypo-osmolality and hyponatremia; N39.0 Urinary tract infection, site not specified; I13.0 Hypertensive heart and chronic kidney disease with heart failure and stage 1 through stage 4 chronic kidney disease, or unspecified chronic kidney disease; I50.32 Chronic diastolic (congestive) heart failure; I25.10 Atherosclerotic heart disease of native coronary artery without angina pectoris; D64.9 Anemia, unspecified; E78.5 Hyperlipidemia, unspecified; I95.9 Hypotension, unspecified; Z79.84 Long term (current) use of oral hypoglycemic drugs; E11.22 Type 2 diabetes mellitus with diabetic chronic kidney disease; N18.9 Chronic kidney disease, unspecified; E83.42 Hypomagnesemia; E83.39 Other disorders of phosphorus metabolism; M35.9 Systemic involvement of connective tissue, unspecified
CPT/HCPCS: 36415; 36430; 71045-TC-FY; 74176-TC; 76775-TC; 80053; 81003; 81015; 82436; 82550; 82570; 82728; 82803; 82962; 83540; 83550; 83605; 83615; 83735; 84100; 84133; 84300; 84484; 85025; 85610; 85730; 86850; 86900; 86901; 86922; 87040; 87086; 87804; 93005; 93010; 93970-TC; 94761; 97116-GP; 97162-GP; 99285-25; C9803; P9058; U0003; U0005

== ENCOUNTER 2021-12-06 04:24 | Day surgery (SDC) | payer OTHER, BC ==
[2021-12-06 10:43] VITALS: BMI 35.5
[2021-12-06 11:30] VITALS: TEMP 97.8
[2021-12-06 12:42] VITALS: BP 147/73; PULSE 65
== END 2021-12-06 13:48 | disposition home or self-care (01) ==
LOC: JASU-ENDO 04:24
PROVIDERS: ATTEND Internal Medicine Gastroenterology
PROC: 0DBL8ZX Excision of Transverse Colon, Via Natural or Artificial Opening Endoscopic, Diagnostic (ICD-10-PCS; 2021-12-06)
PROC: 0DBN8ZX Excision of Sigmoid Colon, Via Natural or Artificial Opening Endoscopic, Diagnostic (ICD-10-PCS; 2021-12-06)
PROC: 0DB98ZX Excision of Duodenum, Via Natural or Artificial Opening Endoscopic, Diagnostic (ICD-10-PCS; 2021-12-06)
PROC: 0DB78ZX Excision of Stomach, Pylorus, Via Natural or Artificial Opening Endoscopic, Diagnostic (ICD-10-PCS; 2021-12-06)
PROC: 0DBK8ZX Excision of Ascending Colon, Via Natural or Artificial Opening Endoscopic, Diagnostic (ICD-10-PCS; principal; 2021-12-06 11:00)
DX: Z12.11 Encounter for screening for malignant neoplasm of colon (principal); Z86.010 Personal history of colon polyps; D50.9 Iron deficiency anemia, unspecified; D12.2 Benign neoplasm of ascending colon; D12.5 Benign neoplasm of sigmoid colon; D12.3 Benign neoplasm of transverse colon; K64.8 Other hemorrhoids; E11.9 Type 2 diabetes mellitus without complications; I10 Essential (primary) hypertension
CPT/HCPCS: 88305-TC; 88342-TC

== ENCOUNTER 2022-05-24 20:02 | Emergency (ER) | payer OTHER, BC ==
[2022-05-24 20:12] VITALS: BP 99/64; PULSE 88; RESP 18; TEMP 98; BMI 34.9
== END 2022-05-24 21:00 | disposition left against medical advice (07) ==
LOC: JER 20:02
DX: U07.1 COVID-19 (principal)
CPT/HCPCS: 99281-25

== ENCOUNTER 2022-05-24 21:01 | Inpatient (IN) | payer OTHER, BC ==
[2022-05-24] MEDS ORDERED: SODIUM CHLORIDE 2,722 ML IV ONE (21:28)
[2022-05-24 22:22] LABS: INR 1.3 (0.83-1.09)
[2022-05-24 22:24] LABS: ACTIVATED PTT 35.6 SECONDS (25.2-36.5)
[2022-05-24 23:07] LABS: BILIRUBIN,TOTAL 0.5 mg/dl (0.2-1); CALCIUM 8.6 mg/dl (8.5-10); CREATININE 2.1 mg/dl (0.55-1.3); TOT PROT 6.6 g/dl (6.4-8.2)
[2022-05-24 23:14] LABS: VENOUS BASE EXCESS -0.9 mmol/L (-2-2); VENOUS O2 SATURATION 49.8 % (70-80); VENOUS PCO2 52.4 mmHg (38-52); VENOUS PH 7.309 (7.310-7.410)
[2022-05-24 23:15] LABS: HEMATOCRIT 27.3 % (32.4-45.2); HEMOGLOBIN 8.9 G/dL (10.7-15.3); MCH 27.5 pg (25.7-33.7); MCHC 32.6 g/dl (32.0-36.0); MEAN CELL VOLUME 84.2 fl (80-96); MEAN PLT VOLUME 6.7 fl (7.5-11.1); PLATELET COUNT 436.8 10^3/uL (134-434); RBC 3.24 10^6/uL (3.60-5.2); RDW 14.5 % (11.6-15.6); WHITE BLOOD COUNT 27.4 10^3/uL (4.0-10.8)
[2022-05-24 23:25] LABS: EPITHELIAL CELLS FEW /hpf
[2022-05-24] MEDS ORDERED: PIPERACILLIN/TAZOB 4.5 GM 4.5 GM in DEXTROSE 5%-WATER 100 ML IVPB ONE (23:31)
[2022-05-24] MEDS ORDERED: VANCOMYCIN 1 GM PREMIX - 200 ML IVPB ONE (23:31)
[2022-05-24] MEDS ORDERED: PIPERACILLIN/TAZOBACTAM 4.5 GM VIAL IVPB ONE (23:36)
[2022-05-24 23:37] LABS: PLATELET ESTIMATE ADEQUATE
[2022-05-24] MEDS ORDERED: VANCOMYCIN 1,000 MG VIAL (RESTRICTED TO ID ONLY) ONE (23:47)
[2022-05-24] MEDS ORDERED: AZITHROMYCIN IVPB 500 MG in DEXTROSE 5%-WATER - 250 ML IVPB ONE (23:48)
[2022-05-24 23:52] LABS: ALBUMIN 3.2 g/dl (3.4-5.0)
[2022-05-24] MEDS ORDERED: AZITHROMYCIN 500 MG VIAL IVPB ONE (23:56)
[2022-05-25] MEDS ORDERED: VANCOMYCIN 1 GM in D5W (PRE-DOCKED) 1,000 MG/250 ML IVPB ONE (00:11)
[2022-05-25 00:22] LABS: LACTIC ACID 2.2 mmol/L (0.4-2.0)
[2022-05-25] MEDS ORDERED: METOCLOPRAMIDE HCL INJECTION 10 MG/2 ML VIAL IVPUSH ONE (00:26)
[2022-05-25] MEDS ORDERED: METOCLOPRAMIDE HCL INJECTION 10 MG/2 ML VIAL ONE (00:30)
[2022-05-25 05:02] VITALS: BMI 36.3
[2022-05-25] MEDS ORDERED: PATIENT'S OWN MEDICATION (NON-FORMULARY) (Olmesartan Medoxomil [Olmesartan Medoxomil] 5 MG PO SCH (11:00)
[2022-05-25] MEDS ORDERED: HYDROCHLOROTHIAZIDE 12.5 MG CAPSULE (FP) PO SCH (11:15)
[2022-05-25] MEDS: SODIUM CHLORIDE 1,000 ML IV SCH (11:40)
[2022-05-25] MEDS: amLODIPine BESYLATE 10 MG TABLET (FP) PO SCH (11:40)
[2022-05-25] MEDS: CEFTRIAXONE 1 GM in DEXTROSE 5%-WATER - 50 ML IVPB SCH (15:40)
[2022-05-25 16:23] LABS: IRON SERUM 19 ug/dL (50-175); TOTAL IRON BINDING CAPACITY 194 ug/dL (250-450)
[2022-05-25] MEDS: INSULIN SLIDING SCALE (NOVOLOG) 1 VIAL SQ SCH ×2 (16:55→21:23)
[2022-05-25] MEDS ORDERED: INSULIN (NOVOLOG) ASPART 100 UNITS/ML 10ML VIAL ONE (17:24)
[2022-05-25] MEDS: NADOLOL 20 MG TABLET (FP) PO SCH (21:29)
[2022-05-25] MEDS: HYDROXYCHLOROQUINE SO4 200 MG TABLET (FP) PO SCH (21:29)
[2022-05-25] MEDS: DOXYCYCLINE INJECTION 100 MG in DEXTROSE 5%-WATER 100 ML IVPB SCH (21:30)
[2022-05-26] MEDS: INSULIN SLIDING SCALE (NOVOLOG) 1 VIAL SQ SCH ×4 (08:20→22:03)
[2022-05-26 09:12] LABS: INR 1.26 (0.83-1.09); PROTHROMBIN TIME (PATIENT) 14.5 SEC (9.7-13.0)
[2022-05-26 09:15] LABS: ACTIVATED PTT 31.5 SECONDS (25.2-36.5); BASO % 0.4 % (0-2.0); EOS % 1.6 % (0-4.5); HEMATOCRIT 25.1 % (32.4-45.2); LYMPH % 9.6 % (8-40); MCH 26.3 pg (25.7-33.7); MEAN CELL VOLUME 82.2 fl (80-96); MEAN PLT VOLUME 6.2 fl (7.5-11.1); MONO % 8.5 % (3.8-10.2); NEUT % 79.9 % (42.8-82.8); PLATELET COUNT 408 10^3/uL (134-434); RBC 3.05 M/mm3 (3.60-5.2); RDW 14.7 % (11.6-15.6); WHITE BLOOD COUNT 10.4 K/mm3 (4.0-10.0)
[2022-05-26 09:32] LABS: CALCIUM 9.3 mg/dL (8.5-10.1)
[2022-05-26 09:33] LABS: ALBUMIN 2.6 g/dl (3.4-5.0); BLOOD UREA NITROGEN 21.4 mg/dL (7-18)
[2022-05-26 09:36] LABS: CREATININE 1.6 mg/dL (0.55-1.3); PHOSPHOROUS 3.8 mg/dL (2.5-4.9)
[2022-05-26 09:37] LABS: BILIRUBIN,TOTAL 0.2 mg/dL (0.2-1); TOT PROT 6.2 g/dl (6.4-8.2)
[2022-05-26] MEDS: amLODIPine BESYLATE 10 MG TABLET (FP) PO SCH (10:54)
[2022-05-26] MEDS: HYDROXYCHLOROQUINE SO4 200 MG TABLET (FP) PO SCH ×2 (10:54→22:03)
[2022-05-26] MEDS: DOXYCYCLINE INJECTION 100 MG in DEXTROSE 5%-WATER 100 ML IVPB SCH (13:21)
[2022-05-26] MEDS: SODIUM CHLORIDE 1,000 ML IV SCH (13:22)
[2022-05-26] MEDS: CEFTRIAXONE 1 GM in DEXTROSE 5%-WATER - 50 ML IVPB SCH (13:22)
[2022-05-26] MEDS: NADOLOL 20 MG TABLET (FP) PO SCH (21:58)
[2022-05-26] MEDS ORDERED: DOXYCYCLINE INJECTION 100 MG in DEXTROSE 5%-WATER 100 ML IVPB SCH (22:00)
[2022-05-27] MEDS: INSULIN SLIDING SCALE (NOVOLOG) 1 VIAL SQ SCH ×2 (06:52→11:30)
[2022-05-27] MEDS: CEFTRIAXONE 1 GM in DEXTROSE 5%-WATER - 50 ML IVPB SCH (10:35)
[2022-05-27] MEDS: amLODIPine BESYLATE 10 MG TABLET (FP) PO SCH (10:35)
[2022-05-27] MEDS: HYDROXYCHLOROQUINE SO4 200 MG TABLET (FP) PO SCH (10:35)
[2022-05-27 12:03] LABS: BASO % 0.3 % (0-2.0); EOS % 1.8 % (0-4.5); HEMATOCRIT 24.8 % (32.4-45.2); HEMOGLOBIN 7.9 GM/dL (10.7-15.3); LYMPH % 14.9 % (8-40); MCH 26.1 pg (25.7-33.7); MEAN CELL VOLUME 81.6 fl (80-96); MONO % 10.4 % (3.8-10.2); NEUT % 72.6 % (42.8-82.8); PLATELET COUNT 430 10^3/uL (134-434); RBC 3.04 M/mm3 (3.60-5.2); RDW 14.7 % (11.6-15.6)
[2022-05-27 12:22] VITALS: RESP 18
[2022-05-27 12:24] LABS: ALBUMIN 2.7 g/dl (3.4-5.0); CALCIUM 9.3 mg/dL (8.5-10.1)
[2022-05-27 12:25] LABS: BLOOD UREA NITROGEN 22.2 mg/dL (7-18)
[2022-05-27 12:28] LABS: CREATININE 1.6 mg/dL (0.55-1.3)
[2022-05-27 12:29] LABS: BILIRUBIN,TOTAL 0.2 mg/dL (0.2-1); TOT PROT 6.3 g/dl (6.4-8.2)
[2022-05-27 13:43] VITALS: BP 143/71; PULSE 76; TEMP 98.2
== END 2022-05-27 15:44 | disposition home or self-care (01) | DRG 178 ==
LOC: FER 21:01 → J6S 05-25 03:40
PROVIDERS: ADMIT Internal Medicine; ATTEND Internal Medicine
DX: U07.1 COVID-19 (principal); E87.1 Hypo-osmolality and hyponatremia; N17.9 Acute kidney failure, unspecified; I25.10 Atherosclerotic heart disease of native coronary artery without angina pectoris; K21.9 Gastro-esophageal reflux disease without esophagitis; K76.0 Fatty (change of) liver, not elsewhere classified; E78.00 Pure hypercholesterolemia, unspecified; D72.829 Elevated white blood cell count, unspecified; R80.9 Proteinuria, unspecified; J32.9 Chronic sinusitis, unspecified; I95.9 Hypotension, unspecified; D50.9 Iron deficiency anemia, unspecified; I12.9 Hypertensive chronic kidney disease with stage 1 through stage 4 chronic kidney disease, or unspecified chronic kidney disease; E11.22 Type 2 diabetes mellitus with diabetic chronic kidney disease; N18.30 Chronic kidney disease, stage 3 unspecified
CPT/HCPCS: 0241U-QW; 36415; 71045-TC-FY; 71250-TC; 76775-TC; 80053; 81003; 81015; 82272; 82550; 82553; 82728; 82803; 82962; 83540; 83550; 83605; 83615; 83735; 84100; 84484; 85025; 85610; 85730; 86140; 86850; 86900; 86901; 87040; 87086; 87899; 93005; 99281-25; 99285-25

== ENCOUNTER 2023-10-16 08:42 | Emergency (ER) | payer OTHER, BC ==
[2023-10-16 09:20] VITALS: BP 145/75; PULSE 83; RESP 20; TEMP 97.9; BMI 36.6
[2023-10-16] MEDS ORDERED: ACETAMINOPHEN 325 MG TABLET (FP) ONE (09:55)
[2023-10-16] MEDS ORDERED: ACETAMINOPHEN 500 MG TABLET (FP) ONE (09:55)
[2023-10-16] MEDS: ACETAMINOPHEN 500 MG TABLET (FP) PO ONE (09:56)
== END 2023-10-16 10:52 | disposition home or self-care (01) ==
LOC: FER 08:42
DX: M79.672 Pain in left foot (principal); W10.9XXA Fall (on) (from) unspecified stairs and steps, initial encounter; W01.198A Fall on same level from slipping, tripping and stumbling with subsequent striking against other object, initial encounter
CPT/HCPCS: 70450-TC; 71045-TC-FY; 72125-TC; 73630-TC-LT; 99284-25

== ENCOUNTER 2025-02-27 06:15 | Day surgery (SDC) | payer OTHER, BC ==
[2025-02-26 11:01] VITALS: BMI 37.3
[2025-02-27 08:14] VITALS: TEMP 97.5
[2025-02-27 08:41] VITALS: PULSE 72
[2025-02-27 08:43] VITALS: BP 137/57; RESP 15
== END 2025-02-27 09:08 | disposition home or self-care (01) ==
LOC: JASU-ENDO 06:15
PROVIDERS: ATTEND Internal Medicine Gastroenterology
PROC: 0DBN8ZX Excision of Sigmoid Colon, Via Natural or Artificial Opening Endoscopic, Diagnostic (ICD-10-PCS; 2025-02-27)
PROC: 0DBP8ZX Excision of Rectum, Via Natural or Artificial Opening Endoscopic, Diagnostic (ICD-10-PCS; principal; 2025-02-27 07:30)
DX: Z12.11 Encounter for screening for malignant neoplasm of colon (principal); K63.5 Polyp of colon; K64.8 Other hemorrhoids; Z86.0100 Personal history of colon polyps, unspecified
CPT/HCPCS: 82962; 88304-TC; 88305-TC